=== PATIENT | female | born 1985 | race Caucasian/White ===

== ENCOUNTER 2017-02-01 14:14 | Emergency (ER) | payer BC, OTHER ==
[~2017-02-01] VITALS: Ht 172.7 cm; Wt 93.0 kg
[~2017-02-01 14:14] MED LIST: CIPR500T94 PO; HYDR-971 PO; METR500T PO; ONDA4TAB10 PO
[2017-02-01] MEDS ORDERED: KETOROLAC 30 MG/ML VIAL. ONE (14:48)
[2017-02-01] MEDS ORDERED: ONDANSETRON PF 4 MG/2 ML VIAL. ONE (14:48)
[2017-02-01] MEDS: fentaNYL PF 100 MCG/2 ML VIAL IV PRN ×2 (14:53→15:16)
[2017-02-01 14:59] LABS: BASO % 0 % (0-3); EOS # 0.2 x10^3/uL (0.0-0.7); EOS % 2 % (0-3); HEMATOCRIT 41.3 % (36.0-47.0); HEMOGLOBIN 13.8 g/dL (12.0-15.5); LYMPH # 1.9 x10^3/uL (1.0-4.8); LYMPH % 22 % (24-48); MEAN CORPUSCULAR HEMOGLOBIN 32 pg (25-35); MEAN CORPUSCULAR HGB CONC 33 g/dL (31-37); MEAN CORPUSCULAR VOLUME 95 fL (79-100); MONO # 0.6 x10^3/uL (0.0-1.1); MONO % 7 % (0-9); NEUT # 5.7 x10^3uL (1.8-7.7); NEUT % 68 % (31-73); PLATELET COUNT 263 x10^3/uL (140-400); RED BLOOD COUNT 4.34 x10^6/uL (3.50-5.40); RED CELL DISTRIBUTION WIDTH 13.7 % (11.5-14.5); WHITE BLOOD COUNT 8.3 x10^3/uL (4.0-11.0)
[2017-02-01] MEDS ORDERED: ONDANSETRON PF 4 MG/2 ML VIAL. IV ONE (15:10)
[2017-02-01] MEDS ORDERED: KETOROLAC 30 MG/ML VIAL. IV ONE (15:10)
[2017-02-01 15:13] LABS: ALBUMIN 3.8 g/dL (3.4-5.0); CALCIUM 8.9 mg/dL (8.5-10.1); CREATININE 0.9 mg/dL (0.6-1.0); DIRECT BILIRUBIN 0.1 mg/dL (0.0-0.2); GFR 72.6; POTASSIUM 4.1 mmol/L (3.5-5.1); TOTAL BILIRUBIN 0.3 mg/dL (0.2-1.0); TOTAL PROTEIN 7.6 g/dL (6.4-8.2)
[2017-02-01] MEDS ORDERED: IV NORMAL SALINE 50ML 50 ML ONE (15:18)
[2017-02-01] MEDS ORDERED: cefTRIAXone SODIUM 1 GM VIAL IV ONE (15:18)
[2017-02-01] MEDS ORDERED: IV NORMAL SALINE 500ML 500 ML ONE (15:20)
--- NOTE | 2017-02-01 15:31 | RAD ---
CT abdomen and pelvis without contrast 02/01/2017 Clinical indication: Left flank pain. Comparison: CT September 12, 2016 Technique: CT helical acquisition of the abdomen and pelvis was obtained without contrast. Coronal and sagittal reformations were obtained. PQRS Compliance Statement: One or more of the following individualized dose reduction techniques were utilized for this examination: 1. Automated exposure control 2. Adjustment of the mA and/or kV according to patient size 3. Use of iterative reconstruction technique Findings: Abdomen and pelvis: Heart size within normal limits and visualized lung bases are clear. Evaluation of the solid abdominopelvic viscera, lymphadenopathy and vasculature are limited in the absence of intravenous contrast. Unenhanced contours of the liver, spleen, adrenal glands, gallbladder, pancreas and kidneys are within normal limits. No urolithiasis or hydroureteronephrosis. Small and large bowel loops are normal in caliber without obstruction. Pedicles normal in appearance. No abdominal free fluid. Abdominal aorta is normal in caliber. Mildly distended and unopacified urinary bladder is within normal limits. Prior bilateral tubal ligation. Vaginal tampon noted. No definite iliac or inguinal lymphadenopathy. No pelvic free fluid. No destructive osseous lesions. Impression: No noncontrast CT etiology to account for left flank pain, specifically no urolithiasis or hydroureteronephrosis.
--- NOTE | 2017-02-01 15:35 | PHYS DOC ---
General Chief Complaint: BACK PAIN OR INJURY Stated Complaint: LEFT SIDE FLANK PAIN IN THE BACK x3 days Time Seen by MD: 14:16 Source: patient, old records ([facility] emergency department records requested and reviewed by me) Exam Limitations: no limitations Problems: History of Present Illness Initial Comments Patient is a 32-year-old female who comes to the emergency department complaining of left flank pain. Patient states she's been hurting for the past 3 days, she was seen at [facility] emergency department 2 days ago and fully evaluated with lab urine studies and CT. No cause for her symptoms was noted, she was discharged home diagnosed with sprain and with "a muscle relaxer" and hydrocodone prescriptions. Patient states that her pain has persisted, she is out of hydrocodone and crying complaining of severe pain and has come for further evaluation. She denies nausea vomiting diarrhea of bowel or bladder symptoms fever chills sweats or myalgias. She denies any trauma or strenuous activity. She has no leg weakness no saddle anesthesia and no incontinence of stool or urine. Patient has no primary care doctor Timing/Duration: constant (3 days) Severity: severe Modifying Factors: worse with movement, improves with rest Associated Symptoms: other Allergies: Coded Allergies: No Known Drug Allergies (Unverified , 06/26/13) Past Medical History Medical History: other (anxiety, frequent urinary tract infections, kidney stones) Surgical History: other (hysteroscopy with insertion of IUD, ureteral stent, D& C, lithotripsy) Social History Smoker: less than 1 pack/day Alcohol: occasionally Drugs: none Review of Systems Constitutional: denies chills, denies diaphoresis, denies fever, denies malaise Respiratory: denies cough, denies shortness of breath Cardiovascular: denies chest pain, denies palpitations Gastrointestinal: denies abdominal pain, denies diarrhea, denies nausea, denies vomiting Genitourinary: denies discharge, denies dysuria, denies frequency, denies hematuria, denies pain Musculoskeletal: see HPI Psychiatric/Neurological: denies headache, denies numbness, denies paresthesia , denies pre-existing deficit, denies seizure, denies weakness Hematologic/Lymphatic: denies blood clots, denies easy bleeding, denies easy bruising Physical Exam General Appearance: moderate distress, obese Eyes: bilateral eye normal inspection, bilateral eye PERRL, bilateral eye EOMI Ear, Nose, Throat: hearing grossly normal, normal ENT inspection Neck: non-tender, supple Respiratory: normal breath sounds, no respiratory distress Cardiovascular: normal peripheral pulses, regular rate, rhythm Gastrointestinal: normal bowel sounds, non tender, soft, no organomegaly Rectal: deferred Back: other (exquisite left SI joint tenderness to palpation with swelling or ecchymosis warmth erythema or palpable bony/soft tissue deformity) Extremities: non-tender, normal inspection Neurologic/Psychiatric: quality assurance 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 PHYSICIAN: TODD ROWLEY DO REASON: L flank pain r/o stone PROCEDURE: CT ABDOMEN PELVIS WO CONTRAST CT abdomen and pelvis without contrast 02/01/2017 Clinical indication: Left flank pain. Comparison: CT September 12, 2016 Technique: CT helical acquisition of the abdomen and pelvis was obtained without contrast. Coronal and sagittal reformations were obtained. PQRS Compliance Statement: One or more of the following individualized dose reduction techniques were utilized for this examination: 1. Automated exposure control 2. Adjustment of the mA and/or kV according to patient size 3. Use of iterative reconstruction technique Findings: Abdomen and pelvis: Heart size within normal limits and visualized lung bases are clear. Evaluation of the solid abdominopelvic viscera, lymphadenopathy and vasculature are limited in the absence of intravenous contrast. Unenhanced contours of the liver, spleen, adrenal glands, gallbladder, pancreas and kidneys are within normal limits. No urolithiasis or hydroureteronephrosis. Small and large bowel loops are normal in caliber without obstruction. Pedicles normal in appearance. No abdominal free fluid. Abdominal aorta is normal in caliber. Mildly distended and unopacified urinary bladder is within normal limits. Prior bilateral tubal ligation. Vaginal tampon noted. No definite iliac or inguinal lymphadenopathy. No pelvic free fluid. No destructive osseous lesions. Impression: No noncontrast CT etiology to account for left flank pain, specifically no urolithiasis or hydroureteronephrosis. DICTATED AND SIGNED BY: TIMMY BURNETTE MD DATE: 02/01/17 6812 CC: PCP,NO; TODD ROWLEY DO ~ Lab and urine studies unremarkable. 1659: Patient is much more comfortable after fentanyl and Toradol. As we have ruled out intra-abdominal cause and physical exam indicative of sacroilitis the patient will be discharged home. I discussed Percocet and prednisone burst as well as the need for close follow-up on Saturday. If symptoms are not improving she may need MRI or orthosis/pain management evaluation. We discussed the treatment plan at length patient expressed agreement and understanding of same. Departure Time of Disposition: 16: Disposition: HOME, SELF-CARE Diagnosis: left sacroiliitis Condition: GOOD Patient Instructions: Sacroiliac Joint Dysfunction Additional Instructions: Work excuse until doctor recheck. Rest, keep activity to "pain free." Aggressive hydration with Gatorade and water to prevent dehydration and opioid- induced constipation. Prescription: Percocet 7.5 mg quantity 20 take with food. Prednisone 20 mg quantity 10 Continue previously prescribed muscle relaxants. Take [id number] stool softeners to prevent constipation. You will need to follow up with a doctor on Saturday for recheck and further evaluation including possible MRI and/or pain management. ED staff will give you a list of local doctors accepting new patients as well as those who have walk-in hours available. Return to ED with new or changing symptoms. TODD ROWLEY DO Feb 01, 2017 15:35
[2017-02-01 16:02] LABS: BARBITURATES NEG (NEG); BENZODIAZEPINES NEG (NEG); CANNABINOIDS NEG (NEG); COCAINE NEG (NEG); METHADONE NEG (NEG); OPIATES POS (NEG); PHENCYCLIDINE NEG (NEG)
[2017-02-01 16:03] LABS: AMPHETAMINE/METHAMPHETAMINE NEG (NEG)
[2017-02-01 16:05] LABS: BACTERIA,URINE 0 /HPF (0-FEW); BILIRUBIN,URINE NEG (NEG); CLARITY,URINE CLEAR; COLOR,URINE STRAW; GLUCOSE,URINE NEG (NEG); NITRITE,URINE NEG (NEG); RBC,URINE 0 /HPF (0-2); SQUAMOUS EPITHELIAL CELL,UR OCC /LPF; UROBILINOGEN,URINE 0.2 mg/dL (0.2 mg/dL); WBC,URINE OCC /HPF (0-4)
[2017-02-01] MEDS ORDERED: ONDANSETRON ODT 4 MG TAB.RAPDIS PO ONE (16:45)
[2017-02-01] MEDS ORDERED: oxyCODONE/APAP 7.5/325 1 TAB TABLET PO ONE (16:45)
[2017-02-01] MEDS ORDERED: methylPREDNISolone SOD SUCC PF 125 MG/2 ML VIAL. IV ONE (16:45)
[2017-02-01 17:44] VITALS: BP 121/65
== END 2017-02-01 17:35 | disposition home or self-care (01) ==
LOC: ER 14:15
DX: M46.1 Sacroiliitis, not elsewhere classified (principal); F41.9 Anxiety disorder, unspecified; F17.210 Nicotine dependence, cigarettes, uncomplicated; Z87.440 Personal history of urinary (tract) infections; Z87.442 Personal history of urinary calculi
CPT/HCPCS: 36415; 74176; 80048; 80076; 80307; 81001; 81025; 83690; 85027; 96365; 96375; 96376; 99285; G0480; J0696; J1885; J2405; J2930; J3010; Q0162; G0479

== ENCOUNTER 2017-02-12 18:20 | Emergency (ER) | payer OTHER ==
[2017-02-12] MEDS ORDERED: IV NORMAL SALINE 1,000ML 1,000 ML IV ONE (19:00)
[2017-02-12] MEDS ORDERED: ONDANSETRON PF 4 MG/2 ML VIAL. IV ONE ×2 (19:15→22:30)
--- NOTE | 2017-02-12 19:15 | ED.ADGEN ---
Past History Past Medical History: No Pertinent History Past Surgical History: Other Smoking: Cigarettes Alcohol Use: Occasionally Drug Use: None Adult General Chief Complaint Chief Complaint multiple complaints HPI HPI Patient is a 32 y/o female who was seen her bout 1-2 months ago for sacroiliac disease. she was instructed to get a pcp which she did. she saw her pcp that prescribed her norflex, hydrocodone, oxycodone, tramadol and medrol dose lien. for 3 weeks she has felt cloudy, shaky, blurred vision. she then stopped the steroids because she thought they were making her shaky. then she stopped pain meds because she thought they were making her sick. after stopping the pain meds, she has been vomiting and diarrhea for past 1 week. she started taking percocet and norflex at night because people told her she should not have suddenly stopped pain meds. restarting percocet helped with jitters. now she only takes norflex and percocet at night. she is still having vomiting and diarrhea for past 4 days. she is feeling lightheaded still. Review of Systems Review of Systems Constitutional: Denies fever or chills [] Eyes: Denies change in visual acuity, redness, or eye pain +blurry vision intermittingly HENT: Denies nasal congestion . +sore throat with vomiting and acidic taste in mouth Respiratory: Denies cough or shortness of breath [] Cardiovascular: No additional information not addressed in HPI [] GI: Denies abdominal pain, +n/v/d [] : Denies dysuria or hematuria [] Musculoskeletal: Denies back pain. +sacroiliac pain Integument: Denies rash or skin lesions [] Neurologic: headache at times, jitteriness Endocrine: Denies polyuria or polydipsia [] Current Medications Current Medications Current Medications Medications (Trade) Dose Ordered Sig/Chato Start Time Stop Time Status Last Admin Dose Admin Diphenhydramine HCl (Benadryl) 25 mg 1X ONCE 02/12/17 22:45 02/12/17 22:45 DC 02/12/17 22:37 25 MG Fentanyl Citrate (Fentanyl 2ml Vial) 50 mcg 1X ONCE 02/12/17 21:15 02/12/17 21:16 DC 02/12/17 21:00 50 MCG Ketorolac Tromethamine (Toradol) 30 mg 1X ONCE 02/12/17 21:15 02/12/17 21:16 DC 02/12/17 21:00 30 MG Ondansetron HCl (Zofran) 4 mg 1X ONCE 02/12/17 22:30 02/12/17 22:31 DC 02/12/17 22:23 4 MG Sodium Chloride 1,000 ml @ 1,000 mls/hr 1X ONCE 02/12/17 19:00 02/12/17 19:59 DC 02/12/17 19:20 1,000 MLS/HR Allergies Allergies Allergies Coded Allergies Type Severity Reaction Last Updated Verified No Known Drug Allergies 06/26/13 No Physical Exam Physical Exam Constitutional: Well developed, well nourished, no acute distress, non-toxic appearance. [] HENT: Normocephalic, atraumatic, bilateral external ears normal, oropharynx moist, no oral exudates, nose normal. [] Eyes: PERRLA, EOMI, conjunctiva normal, no discharge. [] Neck: Normal range of motion, no tenderness, supple, no stridor. [] Cardiovascular:Heart rate regular rhythm, no murmur [] Lungs & Thorax: Bilateral breath sounds clear to auscultation [] Abdomen: Bowel sounds normal, soft, no tenderness, no masses, no pulsatile masses. [] Skin: Warm, dry, no erythema, no rash. [] Back:no cva tenderness, pain over lumbar spine radiating to sacroiliac area Extremities: No tenderness, no cyanosis, no clubbing, ROM intact, no edema. [] Neurologic: Alert and oriented X 3, normal motor function, normal sensory function, no focal deficits noted. +pressured speech Psychologic: Affect normal, judgement normal, mood normal. [] Current Patient Data Vital Signs Vital Signs Date Time Temp Pulse Resp B/P (MAP) Pulse Ox O2 Delivery O2 Flow Rate FiO2 02/12/17 21:00 20 98 Room Air 02/12/17 18:20 98.1 72 Lab Results Laboratory Tests Test 02/12/17 19:15 White Blood Count 13.1 x10^3/uL (4.0-11.0) H Red Blood Count 4.57 x10^6/uL (3.50-5.40) Hemoglobin 14.5 g/dL (12.0-15.5) Hematocrit 43.7 % (36.0-47.0) Mean Corpuscular Volume 96 fL (79-100) Mean Corpuscular Hemoglobin 32 pg (25-35) Mean Corpuscular Hemoglobin Concent 33 g/dL (31-37) Red Cell Distribution Width 13.6 % (11.5-14.5) Platelet Count 268 x10^3/uL (140-400) Neutrophils (%) (Auto) 69 % (31-73) Lymphocytes (%) (Auto) 24 % (24-48) Monocytes (%) (Auto) 6 % (0-9) Eosinophils (%) (Auto) 1 % (0-3) Basophils (%) (Auto) 0 % (0-3) Neutrophils # (Auto) 9.1 x10^3uL (1.8-7.7) H Lymphocytes # (Auto) 3.1 x10^3/uL (1.0-4.8) Monocytes # (Auto) 0.7 x10^3/uL (0.0-1.1) Eosinophils # (Auto) 0.1 x10^3/uL (0.0-0.7) Basophils # (Auto) 0.0 x10^3/uL (0.0-0.2) Sodium Level 138 mmol/L (136-145) Potassium Level 3.5 mmol/L (3.5-5.1) Chloride Level 102 mmol/L (98-107) Carbon Dioxide Level 28 mmol/L (21-32) Anion Gap 8 (6-14) Blood Urea Nitrogen 13 mg/dL (7-20) Creatinine 0.9 mg/dL (0.6-1.0) Estimated GFR (Cockcroft-Gault) 72.6 BUN/Creatinine Ratio 14 (6-20) Glucose Level 117 mg/dL (70-99) H Calcium Level 8.7 mg/dL (8.5-10.1) Magnesium Level 2.1 mg/dL (1.8-2.4) Total Bilirubin 0.2 mg/dL (0.2-1.0) Aspartate Amino Transferase (AST) 26 U/L (15-37) Alanine Aminotransferase (ALT) 54 U/L (14-59) Alkaline Phosphatase 74 U/L (46-116) Total Protein 7.8 g/dL (6.4-8.2) Albumin 3.8 g/dL (3.4-5.0) Albumin/Globulin Ratio 1.0 (1.0-1.7) EKG EKG [] Radiology/Procedures Radiology/Procedures [] Course & Med Decision Making Course & Med Decision Making Pertinent Labs and Imaging studies reviewed. (See chart for details) pt could be suffering from withdrawal since she had been on narcotics for 2-3 weeks. she could be jittery from the steroids although she has been off these for >1 week. labs are unremarkable. ivf given. will have her try baclofen and naprosyn for pain. she will stop percocet and norflex. she will f/u pcp and return here if sx not improving in 3-4 days. [] Final Impression Final Impression [] Problems: Dragon Disclaimer Dragon Disclaimer This electronic medical record was generated, in whole or in part, using a voice recognition dictation system. Departure Disposition: 01 HOME, SELF-CARE Condition: IMPROVED Patient Instructions: Narcotic Withdrawal-Brief Additional Instructions: start baclofen 5mg up to three times a day. naprosyn morning and night. you can continue norflex at night. return if symptoms worsen. baclofen will make you tired so take it after work for the first time Prescriptions baclofen and naprosyn DAKOTA VENTURA MD Feb 12, 2017 19:15
[2017-02-12 19:32] LABS: BASO % 0 % (0-3); EOS # 0.1 x10^3/uL (0.0-0.7); EOS % 1 % (0-3); HEMATOCRIT 43.7 % (36.0-47.0); HEMOGLOBIN 14.5 g/dL (12.0-15.5); LYMPH # 3.1 x10^3/uL (1.0-4.8); LYMPH % 24 % (24-48); MEAN CORPUSCULAR HEMOGLOBIN 32 pg (25-35); MEAN CORPUSCULAR HGB CONC 33 g/dL (31-37); MEAN CORPUSCULAR VOLUME 96 fL (79-100); MONO # 0.7 x10^3/uL (0.0-1.1); MONO % 6 % (0-9); NEUT # 9.1 x10^3uL (1.8-7.7); NEUT % 69 % (31-73); PLATELET COUNT 268 x10^3/uL (140-400); RED BLOOD COUNT 4.57 x10^6/uL (3.50-5.40); RED CELL DISTRIBUTION WIDTH 13.6 % (11.5-14.5); WHITE BLOOD COUNT 13.1 x10^3/uL (4.0-11.0)
[2017-02-12 19:43] LABS: ALBUMIN 3.8 g/dL (3.4-5.0); CALCIUM 8.7 mg/dL (8.5-10.1); CREATININE 0.9 mg/dL (0.6-1.0); GFR 72.6; MAGNESIUM 2.1 mg/dL (1.8-2.4); TOTAL BILIRUBIN 0.2 mg/dL (0.2-1.0); TOTAL PROTEIN 7.8 g/dL (6.4-8.2)
[2017-02-12 19:44] LABS: POTASSIUM 3.5 mmol/L (3.5-5.1)
[2017-02-12] MEDS ORDERED: KETOROLAC 30 MG/ML VIAL. IV ONE (21:15)
[2017-02-12] MEDS ORDERED: fentaNYL PF 100 MCG/2 ML VIAL IV ONE (21:15)
[2017-02-12] MEDS ORDERED: BACL10TA PO (22:13)
[2017-02-12 22:15] VITALS: BP 129/75
[2017-02-12] MEDS ORDERED: NAPR500T PO (22:15)
[2017-02-12] MEDS ORDERED: diphenhydrAMINE 50 MG/ML VIAL IVP ONE (22:45)
== END 2017-02-12 22:38 | disposition home or self-care (01) ==
LOC: ER 18:20
DX: H53.8 Other visual disturbances (principal); R11.2 Nausea with vomiting, unspecified; R19.7 Diarrhea, unspecified; M53.3 Sacrococcygeal disorders, not elsewhere classified; F17.210 Nicotine dependence, cigarettes, uncomplicated
CPT/HCPCS: 36415; 80053; 83735; 85027; 96361; 96374; 96375; 96376; 99285; J1200; J1885; J2405; J3010; J7030

== ENCOUNTER 2017-03-27 19:47 | Emergency (ER) | payer OTHER ==
[~2017-03-27] VITALS: Ht 172.7 cm; Wt 96.2 kg
[~2017-03-27 19:47] MED LIST changes: +BACL10TA PO; +NAPR500T PO
[2017-03-27 19:55] VITALS: BP 151/79
[2017-03-27] MEDS ORDERED: IV NORMAL SALINE 1,000ML 1,000 ML IV SCH (20:06)
--- NOTE | 2017-03-27 20:33 | ED.ADGEN ---
Past History Past Medical History: Migraines Past Surgical History: Other Smoking: Cigarettes Alcohol Use: Occasionally Drug Use: None Adult General HPI HPI Patient is a 32-year-old woman, history of migraine headache, who presents to the emergency department with complaint of numbness and tingling with "heaviness " in her left upper extremity, and a small amount of numbness and tingling in her right upper extremity. Patient states that this began around 3:00 in the morning, while she was engaged in sexual activity, patient states that she was on her elbows and her knees, having her course from behind, when she had sudden numbness that occurred in her left upper extremity, and she fell forward. She denies any previous injuries, any pressure on her neck or head, any nausea or vomiting, states that she had had a significantly severe headache earlier in the day but had resolved mostly at that point. She denies any vision changes, any previous history of focal weakness or numbness, states that she was drinking alcohol last night but denies any other ingestions or exposures. No chest pain, no shortness of breath. Review of Systems Review of Systems Constitutional: Denies fever or chills [] Eyes: Denies change in visual acuity, redness, or eye pain [] HENT: Denies nasal congestion or sore throat [] Respiratory: Denies cough or shortness of breath [] Cardiovascular: No additional information not addressed in HPI [] GI: Denies abdominal pain, nausea, vomiting, bloody stools or diarrhea [] : Denies dysuria or hematuria [] Musculoskeletal: Denies back pain or joint pain [] Integument: Denies rash or skin lesions [] Neurologic: Headache yesterday, located in the posterior aspect of her head, so the right side, with "heaviness" and numbness and tingling located in the left and right upper extremities. Left sided greater than right. Endocrine: Denies polyuria or polydipsia [] Current Medications Current Medications Current Medications Medications (Trade) Dose Ordered Sig/Chato Start Time Stop Time Status Last Admin Dose Admin Sodium Chloride 1,000 ml @ 1,000 mls/hr Q1H 03/27/17 20:06 03/27/17 21:05 DC Allergies Allergies Allergies Coded Allergies Type Severity Reaction Last Updated Verified No Known Drug Allergies 06/26/13 No Physical Exam Physical Exam Constitutional: Well developed, well nourished, no acute distress, non-toxic appearance. [] HENT: Normocephalic, atraumatic, bilateral external ears normal, oropharynx moist, no oral exudates, nose normal. [] Eyes: PERRLA, EOMI, conjunctiva normal, no discharge. [] Neck: Normal range of motion, no tenderness, supple, no stridor. []Negative Spurling sign. Cardiovascular:Heart rate regular rhythm, no murmur, S1, S2, rubs or gallops. [] Lungs & Thorax: Bilateral breath sounds clear to auscultation, no wheezing, rhonchi, rales. No chest or crepitus or tenderness. [] Abdomen: Bowel sounds normal, soft, no tenderness, no masses, no pulsatile masses. [] Skin: Warm, dry, no erythema, no rash. [] Back: No tenderness, no CVA tenderness. [] Extremities: No tenderness, no cyanosis, no clubbing, ROM intact, no edema. Negative Homans sign.[] Neurologic: Alert and oriented X 3, normal motor function, complaints of "tingling", and diminished sensation in case in the entire left upper extremity , with normal sensation in the right upper extremity, normal sensation bilateral low 20s, 5-5 strength in all extremities,, no focal deficits noted. [] Psychologic: Affect normal, judgement normal, mood normal. [] Current Patient Data Vital Signs Vital Signs Date Time Temp Pulse Resp B/P (MAP) Pulse Ox O2 Delivery O2 Flow Rate FiO2 03/27/17 19:55 98.3 86 16 98 Room Air Lab Results Laboratory Tests Test 03/27/17 20:45 03/27/17 20:55 03/27/17 21:09 White Blood Count 11.0 x10^3/uL (4.0-11.0) Red Blood Count 4.41 x10^6/uL (3.50-5.40) Hemoglobin 14.2 g/dL (12.0-15.5) Hematocrit 41.6 % (36.0-47.0) Mean Corpuscular Volume 94 fL (79-100) Mean Corpuscular Hemoglobin 32 pg (25-35) Mean Corpuscular Hemoglobin Concent 34 g/dL (31-37) Red Cell Distribution Width 13.8 % (11.5-14.5) Platelet Count 234 x10^3/uL (140-400) Neutrophils (%) (Auto) 65 % (31-73) Lymphocytes (%) (Auto) 26 % (24-48) Monocytes (%) (Auto) 6 % (0-9) Eosinophils (%) (Auto) 2 % (0-3) Basophils (%) (Auto) 1 % (0-3) Neutrophils # (Auto) 7.1 x10^3uL (1.8-7.7) Lymphocytes # (Auto) 2.9 x10^3/uL (1.0-4.8) Monocytes # (Auto) 0.7 x10^3/uL (0.0-1.1) Eosinophils # (Auto) 0.2 x10^3/uL (0.0-0.7) Basophils # (Auto) 0.1 x10^3/uL (0.0-0.2) Prothrombin Time 11.6 SEC (9.4-11.4) H Prothrombin Time INR 1.1 (0.9-1.1) PTT 26 SEC (23-33) Sodium Level 141 mmol/L (136-145) Potassium Level 4.3 mmol/L (3.5-5.1) Chloride Level 108 mmol/L (98-107) H Carbon Dioxide Level 24 mmol/L (21-32) Anion Gap 9 (6-14) Blood Urea Nitrogen 8 mg/dL (7-20) Creatinine 0.8 mg/dL (0.6-1.0) Estimated GFR (Cockcroft-Gault) 83.1 BUN/Creatinine Ratio 10 (6-20) Glucose Level 72 mg/dL (70-99) Calcium Level 8.6 mg/dL (8.5-10.1) Total Bilirubin 0.7 mg/dL (0.2-1.0) Aspartate Amino Transferase (AST) 27 U/L (15-37) Alanine Aminotransferase (ALT) 20 U/L (14-59) Alkaline Phosphatase 65 U/L (46-116) Total Protein 7.4 g/dL (6.4-8.2) Albumin 3.9 g/dL (3.4-5.0) Albumin/Globulin Ratio 1.1 (1.0-1.7) Urine Opiates Screen Pos (NEG) Urine Methadone Screen Neg (NEG) Urine Barbiturates Neg (NEG) Urine Phencyclidine Screen Neg (NEG) Urine Amphetamine/Methamphetamine Neg (NEG) Urine Benzodiazepines Screen Neg (NEG) Urine Cocaine Screen Neg (NEG) Urine Cannabinoids Screen Neg (NEG) Urine Ethyl Alcohol Pos (NEG) POC Urine HCG, Qualitative hcg negative (Negative) EKG EKG EC: Sinus rhythm, heart rate 67 bpm, upright axis, QTC of 406, QRS of 78 , no ST elevations or depressions, no evidence of acute ST abnormalities. As interpreted by me.[] Radiology/Procedures Radiology/Procedures [][address] [address] IMAGING REPORT Signed PATIENT: CAYDEN WATT ACCOUNT: [id number] : 1985 LOCATION: ER AGE: 32 SEX: F EXAM STATUS: REG ER ORD. PHYSICIAN: MINE SALDANA DO REASON: LUE/RUE weakness PROCEDURE: CT HEAD WO CONTRAST CT head without contrast HISTORY: Weakness and tingling of the upper extremities. TECHNIQUE: [address] imaging skull base to vertex. FINDINGS: No intracranial hemorrhage, mass, hydrocephalus, extra-axial fluid collections or infarction. No acute ischemic changes evident. Imaged orbits, mastoids, paranasal sinuses and bones are unremarkable. IMPRESSION: No acute intracranial CT abnormality. Exposure: One or more of the following individualized dose reduction techniques were utilized for this examination: 1. Automated exposure control 2. Adjustment of the mA and/or kV according to patient size 3. Use of iterative reconstruction technique Electronically signed by: Beryl Mckee MD (03/27/2017 9:34 PM) [facility] DICTATED AND SIGNED BY: BERYL MCKEE MD DATE: 03/27/172129 CC: PAVEL ROBLES DO; MINE SALDANA DO ~ Chest x-ray: One view: Normal cardiopulmonary silhouette, no infiltrates, no pneumothorax, no effusions, no soft tissue or bone abdomen is identified. As interpreted by me. Course & Med Decision Making Course & Med Decision Making Pertinent Labs and Imaging studies reviewed. (See chart for details) Patient with 5-5 strength in all extremities, complaining of tingling and numbness in the left upper extremity circumferentially, and and states that she did have some in the right upper extremity previously, although none at this time. Patient's examination is objectively unremarkable. I did discuss these findings, including patient's presenting history and preceding events, with Dr. Beauchamp of neurology, patient symptoms are consistent with paresthesias, she has no neck tenderness, negative Spurling sign. States this could be a peripheral nerve injury that occurred during her activities, recommends the patient obtain a noncontrast CT of the head, and if this is unremarkable and no other concerning findings identified, that the patient either be transferred to [facility] for MRI and additional evaluation with neurology, or if you prefer, to follow-up with him in the outpatient setting. I did discuss with patient, she was agreeable to receiving laboratory studies and CT without contrast. This was obtained and revealed no concerning findings. Patient's laboratory studies were also unremarkable. On reevaluation, patient is eating, using both hands without issue. She states that she is feeling better at this time although she does still have some residual numbness and tingling in the left upper extremity. I did revisit with patient admission to the hospital for MRI and additional evaluation, patient declined stating she preferred to follow- up as an outpatient. Patient's neurologic examination is unchanged. We did discuss risks versus benefit of this course, and concerning symptoms that prompt the return, patient voiced understanding and agreement. Patient was given contact information for Dr. Gonzales, along with clear and detailed instructions and precautions. Patient discharged home in stable condition ambulatory in the difficulty upon exiting the ED. Final Impression Final Impression [] Problems: Dragon Disclaimer Dragon Disclaimer This electronic medical record was generated, in whole or in part, using a voice recognition dictation system. Departure: Impression: Primary Impression: Paresthesias Disposition: 01 HOME, SELF-CARE Condition: IMPROVED MINE SALDANA DO Mar 27, 2017 20:33
--- NOTE | 2017-03-27 20:39 | EKG ---
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
[2017-03-27 21:12] LABS: BASO # 0.1 x10^3/uL (0.0-0.2); BASO % 1 % (0-3); EOS # 0.2 x10^3/uL (0.0-0.7); EOS % 2 % (0-3); HEMATOCRIT 41.6 % (36.0-47.0); HEMOGLOBIN 14.2 g/dL (12.0-15.5); LYMPH # 2.9 x10^3/uL (1.0-4.8); LYMPH % 26 % (24-48); MEAN CORPUSCULAR HEMOGLOBIN 32 pg (25-35); MEAN CORPUSCULAR HGB CONC 34 g/dL (31-37); MEAN CORPUSCULAR VOLUME 94 fL (79-100); MONO # 0.7 x10^3/uL (0.0-1.1); MONO % 6 % (0-9); NEUT # 7.1 x10^3uL (1.8-7.7); NEUT % 65 % (31-73); PLATELET COUNT 234 x10^3/uL (140-400); RED BLOOD COUNT 4.41 x10^6/uL (3.50-5.40); RED CELL DISTRIBUTION WIDTH 13.8 % (11.5-14.5)
[2017-03-27 21:28] LABS: BARBITURATES NEG (NEG); BENZODIAZEPINES NEG (NEG); CANNABINOIDS NEG (NEG); COCAINE NEG (NEG); METHADONE NEG (NEG); OPIATES POS (NEG); PHENCYCLIDINE NEG (NEG)
[2017-03-27 21:28] LABS: ALBUMIN 3.9 g/dL (3.4-5.0); ALBUMIN/GLOBULIN RATIO 1.1 (1.0-1.7); CALCIUM 8.6 mg/dL (8.5-10.1); CREATININE 0.8 mg/dL (0.6-1.0); GFR 83.1; POTASSIUM 4.3 mmol/L (3.5-5.1); TOTAL BILIRUBIN 0.7 mg/dL (0.2-1.0); TOTAL PROTEIN 7.4 g/dL (6.4-8.2)
[2017-03-27 21:29] LABS: AMPHETAMINE/METHAMPHETAMINE NEG (NEG)
--- NOTE | 2017-03-27 21:37 | RAD ---
CT head without contrast HISTORY: Weakness and tingling of the upper extremities. TECHNIQUE: [address] imaging skull base to vertex. FINDINGS: No intracranial hemorrhage, mass, hydrocephalus, extra-axial fluid collections or infarction. No acute ischemic changes evident. Imaged orbits, mastoids, paranasal sinuses and bones are unremarkable. IMPRESSION: No acute intracranial CT abnormality. Exposure: One or more of the following individualized dose reduction techniques were utilized for this examination: 1. Automated exposure control 2. Adjustment of the mA and/or kV according to patient size 3. Use of iterative reconstruction technique Electronically signed by: Renan Mckee MD (03/27/2017 9:34 PM) [facility]
--- NOTE | 2017-03-28 08:13 | RAD ---
Indication weakness. Tingling down the arms. A single view of the chest was obtained. No prior imaging of the chest is available. The heart, pulmonary vessels and mediastinum appear normal. The lungs are clear. There is no pleural fluid or pneumothorax. Bony structures appear grossly intact. Nipple ornaments are noted. IMPRESSION: No acute or significant finding in the chest
== END 2017-03-27 20:18 | disposition home or self-care (01) ==
LOC: ER 19:47
DX: R20.2 Paresthesia of skin (principal); G43.909 Migraine, unspecified, not intractable, without status migrainosus; F17.210 Nicotine dependence, cigarettes, uncomplicated
CPT/HCPCS: 36415; 70450; 71010; 80053; 80307; 81025; 85025; 85610; 85730; 93005; 99285-25; G0479

== ENCOUNTER 2017-08-23 23:02 | Emergency (ER) | payer OTHER ==
[~2017-08-23] VITALS: Ht 172.7 cm; Wt 96.6 kg
[~2017-08-23 23:02] MED LIST changes: +NAPR-683 PO; -NAPR500T PO
--- NOTE | 2017-08-23 23:12 | ED.ADGEN ---
Past History Past Medical History: Migraines Past Surgical History: Other Smoking: Cigarettes Alcohol Use: Occasionally Drug Use: None Adult General Chief Complaint Chief Complaint ".. Yesterday.. I fell about 1 am... and landed on this Lt elbow.. it still really hurting..." HPI HPI Patient is a 32 year old female who presents with above hx and complaints of contusion to Lt. forearm during an accidental fall. Patient has obvious ecchymosis and contusion to mid forearm. Distal neurovascular intact. No upper arm tenderness. Patient is right-hand dominant. No other injuries reported in the fall. Review of Systems Review of Systems Constitutional: Denies fever or chills [] Eyes: Denies change in visual acuity, redness, or eye pain [] HENT: Denies nasal congestion or sore throat [] Respiratory: Denies cough or shortness of breath [] Cardiovascular: No additional information not addressed in HPI [] GI: Denies abdominal pain, nausea, vomiting, bloody stools or diarrhea [] : Denies dysuria or hematuria [] Musculoskeletal: Denies back pain or joint pain []complains of left forearm pain Integument: Denies rash or skin lesions [] Neurologic: Denies headache, focal weakness or sensory changes [] Endocrine: Denies polyuria or polydipsia [] All other systems were reviewed and found to be within normal limits, except as documented in this note. Family History Family History Noncontributory to presentation Current Medications Current Medications Current Medications Medications (Trade) Dose Ordered Sig/[facility] Start Time Stop Time Status Last Admin Dose Admin Ketorolac Tromethamine (Toradol) 60 mg 1X ONCE 08/23/17 23:45 08/23/17 23:46 DC 08/23/17 23:52 60 MG See nursing for home meds Allergies Allergies Allergies Coded Allergies Type Severity Reaction Last Updated Verified No Known Drug Allergies 08/24/17 No Physical Exam Physical Exam Constitutional: Moderately acute acute distress, non-toxic appearance. [] HENT: Normocephalic, atraumatic, bilateral external ears normal, oropharynx moist, no oral exudates, nose normal. [] Eyes: PERRLA, EOMI, conjunctiva normal, no discharge. [] Neck: Normal range of motion, no tenderness, supple, no stridor. [] Cardiovascular:Heart rate regular rhythm, no murmur [] Lungs & Thorax: Bilateral breath sounds few scattered wheezes at apexes on auscultation [] Abdomen: Bowel sounds normal, soft, no tenderness, no masses, no pulsatile masses. Obese Skin: Warm, dry, no erythema, no rash. [] Back: No tenderness, no CVA tenderness. [] Extremities: No tenderness, no cyanosis, no clubbing, ROM intact, no edema. Except findings of left forearm as per history of present illness Neurologic: Alert and oriented X 3, normal motor function, normal sensory function, no focal deficits noted. [] Psychologic: Affect anxious, judgement normal, mood normal. [] EKG EKG [] Radiology/Procedures Radiology/Procedures My interpretation of right forearm x-ray shows no obvious fracture dislocation. There is some obvious edema and areas of contusion.[] Course & Med Decision Making Course & Med Decision Making Pertinent Labs and Imaging studies reviewed. (See chart for details). Ice, elevation, rest,- a trial of sling and splint. Tylenol and ibuprofen for pain. For marked pain may take Vicoprofen up to 4 times a day. Follow-up primary care. Consider re-x-ray in 2 weeks for possible callus formation. [] Final Impression Final Impression 1. Lt. Elbow Contusion. [] Problems: Dragon Disclaimer Dragon Disclaimer This electronic medical record was generated, in whole or in part, using a voice recognition dictation system. FER HIDALGO MD Aug 23, 2017 23:12
[2017-08-23] MEDS ORDERED: HYDR-79 PO (23:42)
[2017-08-23] MEDS ORDERED: KETOROLAC 60 MG/2 ML VIAL. IM ONE (23:45)
[2017-08-24 00:30] VITALS: BP 120/70
--- NOTE | 2017-08-24 08:10 | RAD ---
EXAM: Left elbow 3 views. HISTORY: Fall with left elbow pain and numbness. COMPARISON: None. FINDINGS: No fractures are identified. Joint spaces and alignment are maintained. There is no joint effusion. IMPRESSION: 1. No fracture or joint effusion.
== END 2017-08-24 01:00 | disposition home or self-care (01) ==
LOC: ER 23:02
DX: S50.12XA Contusion of left forearm, initial encounter (principal); G43.909 Migraine, unspecified, not intractable, without status migrainosus; F17.210 Nicotine dependence, cigarettes, uncomplicated; W19.XXXA Unspecified fall, initial encounter; Y93.89 Activity, other specified; Y99.8 Other external cause status; Y92.89 Other specified places as the place of occurrence of the external cause
CPT/HCPCS: 73080; 96372; 99284; J1885

== ENCOUNTER 2017-10-05 15:02 | Emergency (ER) | payer OTHER ==
[~2017-10-05] VITALS: Ht 172.7 cm; Wt 93.9 kg
[~2017-10-05 15:02] MED LIST changes: +HYDR-79 PO
[2017-10-05] MEDS ORDERED: IV NORMAL SALINE 1,000ML 1,000 ML IV SCH (15:37)
[2017-10-05 15:50] LABS: BASO # 0.1 x10^3/uL (0.0-0.2); BASO % 1 % (0-3); EOS # 0.1 x10^3/uL (0.0-0.7); EOS % 1 % (0-3); HEMATOCRIT 41.8 % (36.0-47.0); LYMPH # 1.5 x10^3/uL (1.0-4.8); LYMPH % 23 % (24-48); MEAN CORPUSCULAR HEMOGLOBIN 32 pg (25-35); MEAN CORPUSCULAR HGB CONC 34 g/dL (31-37); MEAN CORPUSCULAR VOLUME 94 fL (79-100); MONO # 0.6 x10^3/uL (0.0-1.1); MONO % 9 % (0-9); NEUT # 4.4 x10^3uL (1.8-7.7); NEUT % 66 % (31-73); PLATELET COUNT 249 x10^3/uL (140-400); RED BLOOD COUNT 4.45 x10^6/uL (3.50-5.40); RED CELL DISTRIBUTION WIDTH 13.5 % (11.5-14.5); WHITE BLOOD COUNT 6.7 x10^3/uL (4.0-11.0)
[2017-10-05] MEDS ORDERED: ONDANSETRON PF 4 MG/2 ML VIAL. IV ONE (16:00)
[2017-10-05] MEDS ORDERED: PANTOPRAZOLE IV 40 MG VIAL. IVP ONE (16:00)
[2017-10-05 16:03] LABS: ALBUMIN 3.5 g/dL (3.4-5.0); CALCIUM 8.4 mg/dL (8.5-10.1); CREATININE 0.8 mg/dL (0.6-1.0); GFR 83.1; POTASSIUM 3.6 mmol/L (3.5-5.1); TOTAL BILIRUBIN 0.2 mg/dL (0.2-1.0); TOTAL PROTEIN 7.1 g/dL (6.4-8.2)
[2017-10-05] MEDS ORDERED: IV NORMAL SALINE 50ML 50 ML ONE (16:37)
[2017-10-05] MEDS ORDERED: PROMETHAZINE 25 MG/ML VIAL IV ONE (16:37)
[2017-10-05] MEDS ORDERED: PROMETHAZINE 12.5 MG in IV NORMAL SALINE 50ML 50 ML IV ONE (16:45)
[2017-10-05] MEDS ORDERED: MAG HYDROX/AL HYDROX/SIMETH 30 ML ORAL.SUSP PO ONE (16:45)
[2017-10-05] MEDS ORDERED: ONDA4TAB12 PO (17:19)
--- NOTE | 2017-10-05 17:19 | PHYS DOC ---
Past History Past Medical History: Other Past Surgical History: No Surgical History Smoking: Cigarettes Alcohol Use: Occasionally Drug Use: None Adult General Chief Complaint Chief Complaint: ABDOMINAL PAIN HPI HPI Patient is a 32-year-old female who presents ambulatory to the ED with the complaint of nausea and vomiting and abdominal pain that started this morning. The patient says she gets an episode of this every now and then, sometimes related to what she eats, she ate Lawson sausage which might have been spicy. She also notes this happening when she goes without her medication, omeprazole. She ran out of it about a week ago. It feels like "my stomach is boiling" and it feels like a burning pain all the way up through her chest into her throat. She has had a bit of vomiting. She did take an omeprazole yesterday and took one this morning but she vomited it. Liquid antacids help her but she has been out of those. Patient has been seen for this before, was hospitalized and had endoscopy and was told she had ulcers. SHe does not currently have a primary care doctor. Review of Systems Review of Systems Constitutional: Denies fever or chills [] Respiratory: Denies cough or shortness of breath [] Cardiovascular: Denies chest pain GI: As in history of present illness : Denies dysuria or hematuria [] Musculoskeletal: Denies back pain or joint pain [] Integument: Denies rash or skin lesions [] Neurologic: Denies headache, focal weakness or sensory changes [] Current Medications Current Medications Current Medications Medications (Trade) Dose Ordered Sig/[facility] Start Time Stop Time Status Last Admin Dose Admin Al Hydroxide/Mg Hydroxide (Mylanta Plus Xs) 30 ml 1X ONCE 10/05/17 16:45 10/05/17 16:46 DC 10/05/17 16:55 30 ML Fentanyl Citrate (Fentanyl 2ml Vial) 75 mcg 1X ONCE 10/05/17 16:45 10/05/17 16:46 DC 10/05/17 16:55 75 MCG Ondansetron HCl (Zofran) 4 mg 1X ONCE 10/05/17 16:00 10/05/17 16:01 DC 10/05/17 15:47 4 MG Pantoprazole Sodium (Protonix Vial) 40 mg 1X ONCE 10/05/17 16:00 10/05/17 16:01 DC 10/05/17 15:47 40 MG Promethazine HCl (Phenergan) 25 mg STK-MED ONCE 10/05/17 16:37 10/05/17 16:38 DC Promethazine HCl 12.5 mg/Sodium Chloride 50.5 ml @ 101 mls/hr 1X ONCE 10/05/17 16:45 10/05/17 17:14 DC 10/05/17 16:55 101 MLS/HR Sodium Chloride 50 ml @ As Directed STK-MED ONCE 10/05/17 16:37 10/05/17 16:38 DC Allergies Allergies Allergies Coded Allergies Type Severity Reaction Last Updated Verified No Known Drug Allergies 08/24/17 No Physical Exam Physical Exam Constitutional: Well developed, well nourished, she appears uncomfortable, has been vomiting a small amount of yellow stomach acid HENT: Normocephalic, atraumatic, bilateral external ears normal, nose normal. [ ] Eyes:conjunctiva normal, no discharge. [] Neck: Normal range of motion, no stridor. [] Cardiovascular:Heart rate regular rhythm, no murmur [] Lungs & Thorax: Bilateral breath sounds clear to auscultation [] Abdomen: Bowel sounds normal, soft, no masses, no pulsatile masses. Nondistended. Diffuse mild tenderness to palpation, especially across the upper abdomen. No rebound or guarding. Skin: Warm, dry, no erythema, no rash. [] Extremities: No tenderness, no cyanosis, no clubbing, ROM intact, no edema. [] Neurologic: Alert and oriented X 3, normal motor function, no focal deficits noted. [] Current Patient Data Vital Signs Vital Signs Date Time Temp Pulse Resp B/P (MAP) Pulse Ox O2 Delivery O2 Flow Rate FiO2 10/05/17 16:55 18 10/05/17 15:10 98.4 105 98 Room Air Lab Results Laboratory Tests Test 10/05/17 15:35 White Blood Count 6.7 x10^3/uL (4.0-11.0) Red Blood Count 4.45 x10^6/uL (3.50-5.40) Hemoglobin 14.0 g/dL (12.0-15.5) Hematocrit 41.8 % (36.0-47.0) Mean Corpuscular Volume 94 fL (79-100) Mean Corpuscular Hemoglobin 32 pg (25-35) Mean Corpuscular Hemoglobin Concent 34 g/dL (31-37) Red Cell Distribution Width 13.5 % (11.5-14.5) Platelet Count 249 x10^3/uL (140-400) Neutrophils (%) (Auto) 66 % (31-73) Lymphocytes (%) (Auto) 23 % (24-48) L Monocytes (%) (Auto) 9 % (0-9) Eosinophils (%) (Auto) 1 % (0-3) Basophils (%) (Auto) 1 % (0-3) Neutrophils # (Auto) 4.4 x10^3uL (1.8-7.7) Lymphocytes # (Auto) 1.5 x10^3/uL (1.0-4.8) Monocytes # (Auto) 0.6 x10^3/uL (0.0-1.1) Eosinophils # (Auto) 0.1 x10^3/uL (0.0-0.7) Basophils # (Auto) 0.1 x10^3/uL (0.0-0.2) Sodium Level 145 mmol/L (136-145) Potassium Level 3.6 mmol/L (3.5-5.1) Chloride Level 109 mmol/L (98-107) H Carbon Dioxide Level 26 mmol/L (21-32) Anion Gap 10 (6-14) Blood Urea Nitrogen 13 mg/dL (7-20) Creatinine 0.8 mg/dL (0.6-1.0) Estimated GFR (Cockcroft-Gault) 83.1 BUN/Creatinine Ratio 16 (6-20) Glucose Level 80 mg/dL (70-99) Calcium Level 8.4 mg/dL (8.5-10.1) L Total Bilirubin 0.2 mg/dL (0.2-1.0) Aspartate Amino Transferase (AST) 16 U/L (15-37) Alanine Aminotransferase (ALT) 25 U/L (14-59) Alkaline Phosphatase 60 U/L (46-116) Total Protein 7.1 g/dL (6.4-8.2) Albumin 3.5 g/dL (3.4-5.0) Albumin/Globulin Ratio 1.0 (1.0-1.7) Lipase 174 U/L (73-393) EKG EKG [] Radiology/Procedures Radiology/Procedures [] Course & Med Decision Making Course & Med Decision Making Pertinent Labs and Imaging studies reviewed. (See chart for details) 32-year-old female who is having an exacerbation of nausea, vomiting, with excess stomach acid, which she has had in the past. She was given IV fluids, IV antiemetics, pain medication, and a dose of liquid and acid. She felt much better after this treatment. Labs were normal. Patient is stable for discharge and she now has omeprazole at home and also her said he just went and bought some liquid antacid. The patient is stable for discharge. See instructions for plan. [] Dragon Disclaimer Dragon Disclaimer This electronic medical record was generated, in whole or in part, using a voice recognition dictation system. Departure Departure: Impression: Primary Impression: Gastritis Additional Impressions: Acid reflux Nausea and vomiting Disposition: 01 HOME, SELF-CARE Condition: IMPROVED Referrals: PCPAVA (PCP) Patient Instructions: Nausea and Vomiting, [id number] Additional Instructions: You may use a liquid antacid as needed for acid symptoms including stomach burning, vomiting, burning of the throat. Those are very safe and the most common side effect is going to be some loose stools Discuss with your doctor whether a prescription for daily omeprazole would be a better choice for you been buying it [id number]. Scripts Ondansetron (ONDANSETRON ODT) 4 Mg Tab.rapdis 1 TAB PO PRN Q6-8HRS for NAUSEA, #10 TAB Prov: СВЕТЛАНА VASQUEZ MD 10/05/17 Problem Qualifiers СВЕТЛАНА VASQUEZ MD Oct 05, 2017 17:19
[2017-10-05 17:20] VITALS: BP 118/70
== END 2017-10-05 17:34 | disposition home or self-care (01) ==
LOC: ER 15:02
DX: K29.70 Gastritis, unspecified, without bleeding (principal); K21.9 Gastro-esophageal reflux disease without esophagitis; F17.210 Nicotine dependence, cigarettes, uncomplicated
CPT/HCPCS: 36415; 80053; 83690; 85025; 96361; 96365; 96375; 99284; C9113; J2405; J2550; J3010; J7030

== ENCOUNTER 2017-11-08 10:42 | Emergency (ER) | payer OTHER ==
[~2017-11-08 10:42] MED LIST changes: +ONDA4TAB12 PO
[2017-11-08] MEDS ORDERED: KETOROLAC 60 MG/2 ML VIAL. IM ONE (11:15)
[2017-11-08 11:35] LABS: BILIRUBIN,URINE NEG (NEG); CLARITY,URINE HAZY; COLOR,URINE STRAW; GLUCOSE,URINE NEG (NEG); NITRITE,URINE NEG (NEG); RBC,URINE RARE /HPF (0-2); UROBILINOGEN,URINE 0.2 mg/dL (0.2 mg/dL)
[2017-11-08 11:36] LABS: BACTERIA,URINE FEW /HPF (0-FEW); SQUAMOUS EPITHELIAL CELL,UR FEW /LPF; WBC,URINE >40 /HPF (0-4)
[2017-11-08] MEDS ORDERED: cefTRIAXone IM 1 GM VIAL IM ONE (11:45)
[2017-11-08] MEDS ORDERED: HYDROcodone/APAP 5/325MG 1 TAB TABLET PO ONE (11:45)
[2017-11-08] MEDS ORDERED: HYDR-971 PO (12:21)
[2017-11-08] MEDS ORDERED: CIPR250T30 PO (12:21)
[2017-11-08] MEDS ORDERED: PHEN100T82 PO (12:21)
--- NOTE | 2017-11-08 12:21 | PHYS DOC ---
Past History Past Medical History: Other Past Surgical History: No Surgical History Smoking: Cigarettes Alcohol Use: Occasionally Drug Use: None Adult General Chief Complaint Chief Complaint: PELVIC PAIN HPI HPI 32-year-old female patient complaining of urinary frequency and dysuria since yesterday with suprapubic pain as a constant pain that getting force with urination. Patient denies nausea and vomiting, diarrhea and constipation, fever and chills. Patient states she had frequent episodes of UTI and had at least 3 episodes of UTI for the last 2 months. Patient states she had vaginal bleeding after intercourse last night. Patient states she is with her current partner for the last 2 years and denies STD. Review of Systems Review of Systems Constitutional: Denies fever or chills [] Eyes: Denies change in visual acuity, redness, or eye pain [] HENT: Denies nasal congestion or sore throat [] Respiratory: Denies cough or shortness of breath [] Cardiovascular: No additional information not addressed in HPI [] GI: Reports abdominal pain, denies nausea, vomiting, bloody stools or diarrhea [ ] : Denies flank pain, reports dysuria or hematuria [] Musculoskeletal: Denies back pain or joint pain [] Integument: Denies rash or skin lesions [] Neurologic: Denies headache, focal weakness or sensory changes [] Endocrine: Denies polyuria or polydipsia [] All other systems were reviewed and found to be within normal limits, except as documented in this note. Current Medications Current Medications Current Medications Medications (Trade) Dose Ordered Sig/[facility] Start Time Stop Time Status Last Admin Dose Admin Acetaminophen/ Hydrocodone Bitart (Lortab 5/325) 1 tab 1X ONCE 11/08/17 11:45 11/08/17 11:47 DC 11/08/17 11:47 1 TAB Ceftriaxone Sodium (Rocephin Im) 1 gm 1X ONCE 11/08/17 11:45 11/08/17 11:47 DC 11/08/17 11:55 1 GM Ketorolac Tromethamine (Toradol) 60 mg 1X ONCE 11/08/17 11:15 11/08/17 11:21 DC 11/08/17 11:15 60 MG Allergies Allergies Allergies Coded Allergies Type Severity Reaction Last Updated Verified No Known Drug Allergies 08/24/17 No Physical Exam Physical Exam Constitutional: Well developed, well nourished, mild distress, non-toxic appearance, anxious. [] HENT: Normocephalic, atraumatic, bilateral external ears normal, oropharynx moist, no oral exudates, nose normal. [] Eyes: PERRLA, EOMI, conjunctiva normal, no discharge. [] Neck: Normal range of motion, no tenderness, supple, no stridor. [] Cardiovascular:Heart rate regular rhythm, no murmur [] Lungs & Thorax: Bilateral breath sounds clear to auscultation [] Abdomen: Bowel sounds normal, soft, no tenderness, supple with guarding, no masses, no pulsatile masses. 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 [] Back: No tenderness, no CVA tenderness. [] Extremities: No tenderness, no cyanosis, no clubbing, ROM intact, no edema. [] Neurologic: Alert and oriented X 3, normal motor function, normal sensory function, no focal deficits noted. [] Psychologic: Very anxious, judgement normal, mood normal. [] Current Patient Data Lab Results Laboratory Tests Test 11/08/17 10:06 11/08/17 10:55 POC Urine HCG, Qualitative hcg negative (Negative) Urine Collection Type Unknown Urine Color Straw Urine Clarity Hazy Urine pH 6.5 Urine Specific [place] 1.010 Urine Protein Neg (NEG-TRACE) Urine Glucose (UA) Neg mg/dL (NEG) Urine Ketones (Stick) Neg mg/dL (NEG) Urine Blood Small (NEG) Urine Nitrite Neg (NEG) Urine Bilirubin Neg (NEG) Urine Urobilinogen Dipstick 0.2 mg/dL (0.2 mg/dL) Urine Leukocyte Esterase Mod (NEG) Urine RBC Rare /HPF (0-2) Urine WBC >40 /HPF (0-4) Urine Squamous Epithelial Cells Few /LPF Urine Bacteria Few /HPF (0-FEW) Microbiology 11/08/17 Wet Prep - Final, Complete EKG EKG [] Radiology/Procedures Radiology/Procedures [] Course & Med Decision Making Course & Med Decision Making Pertinent Labs reviewed. (See chart for details) Evaluation of patient in ER showed 32-year-old female patient presented to ER with a symptom. Patient was very anxious and asking for Dilaudid and fentanyl for her pain. Patient treated with Toradol and Dailey and Rocephin in ER. Patient instructed to follow-up with her primary care physician for recurrent UTI Berta Disclaimer Berta Disclaimer This electronic medical record was generated, in whole or in part, using a voice recognition dictation system. Departure Departure: Impression: Primary Impression: Urinary tract infection Additional Impressions: Bacterial vaginitis Anxiety Tobacco abuse Tobacco abuse counseling Disposition: HOME, SELF-CARE (At 1220) Condition: IMPROVED Referrals: PCP,NO (PCP) Patient Instructions: Bacterial Vaginosis, Smoking Cessation, Urinary Tract Infection Additional Instructions: Drink plenty of liquids Follow-up with your primary care physician in 3-5 days Return to ER if not getting better Scripts Hydrocodone Bit/Acetaminophen (NORCO 5-325 TABLET) 1 Each Tablet 1 TAB PO PRN Q6HRS Y for PAIN, #14 TAB 0 Refills Prov: ASAF CABELLO MD 11/08/17 Phenazopyridine Hcl (PYRIDIUM) 100 Mg Tablet 100 MG PO BID, #14 TAB Prov: ASAF CABELLO MD 11/08/17 Ciprofloxacin Hcl (CIPRO) 250 Mg Tablet 1 TAB PO BID, #14 TAB Prov: ASAF CABELLO MD 11/08/17 Problem Qualifiers ASAF CABELLO MD November 08, 2017 12:21
[2017-11-08 12:35] VITALS: BP 107/73
== END 2017-11-08 12:35 | disposition home or self-care (01) ==
LOC: ER 10:42
DX: N39.0 Urinary tract infection, site not specified (principal); N76.0 Acute vaginitis; B96.89 Other specified bacterial agents as the cause of diseases classified elsewhere; F41.9 Anxiety disorder, unspecified; F17.210 Nicotine dependence, cigarettes, uncomplicated; Z71.6 Tobacco abuse counseling
CPT/HCPCS: 81001; 81025; 87086; 96372; 99284; J0696; J1885; Q0111

== ENCOUNTER 2019-04-02 11:56 | Emergency (ER) | payer MEDICAID, OTHER ==
[~2019-04-02] VITALS: Ht 172.7 cm; Wt 90.7 kg
[~2019-04-02 11:56] MED LIST changes: +CIPR250T30 PO; +HYDR-1179 PO; +HYDR-3165 PO; -HYDR-79 PO; -HYDR-971 PO; +PHEN100T82 PO
[2019-04-02 12:13] VITALS: BP 120/69
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
[2019-04-02] MEDS ORDERED: DICL50TA4 PO (13:06)
[2019-04-02] MEDS ORDERED: CYCL-331 PO (13:06)
== END 2019-04-02 13:25 | disposition home or self-care (01) ==
LOC: ER 11:56
DX: S39.012A Strain of muscle, fascia and tendon of lower back, initial encounter (principal); Z87.440 Personal history of urinary (tract) infections; F17.210 Nicotine dependence, cigarettes, uncomplicated; V89.2XXA Person injured in unspecified motor-vehicle accident, traffic, initial encounter; Y93.I9 Activity, other involving external motion; Y92.488 Other paved roadways as the place of occurrence of the external cause; Y99.8 Other external cause status
CPT/HCPCS: 72100; 99284

== ENCOUNTER 2019-04-10 15:49 | Emergency (ER) | payer MEDICAID ==
[~2019-04-10 15:49] MED LIST changes: +CYCL-331 PO; +DICL50TA4 PO
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
[2019-04-10 16:36] VITALS: BP 119/76
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
[2019-04-10] MEDS ORDERED: KETOROLAC 30 MG/ML VIAL. IM ONE (16:45)
[2019-04-10] MEDS ORDERED: OXAP600T2 PO (16:58)
[2019-04-10] MEDS ORDERED: ORPH-16 PO (16:58)
== END 2019-04-10 17:09 | disposition home or self-care (01) ==
LOC: ER 15:49
DX: M25.551 Pain in right hip (principal); T50.995A Adverse effect of other drugs, medicaments and biological substances, initial encounter; F17.210 Nicotine dependence, cigarettes, uncomplicated; Z87.440 Personal history of urinary (tract) infections; Y92.89 Other specified places as the place of occurrence of the external cause
CPT/HCPCS: 73502; 96372; 99284; J1885

== ENCOUNTER 2019-06-15 23:17 | Emergency (ER) | payer MEDICAID ==
[~2019-06-15] VITALS: Ht 172.7 cm; Wt 85.3 kg
[~2019-06-15 23:17] MED LIST changes: +ORPH-16 PO; +OXAP600T2 PO
[2019-06-15 23:20] VITALS: BP 125/73
[2019-06-15] MEDS ORDERED: ONDA4TAB12 PO (23:56)
[2019-06-16 00:11] LABS: BACTERIA,URINE FEW /HPF (0-FEW); BILIRUBIN,URINE NEG (NEG); CLARITY,URINE CLEAR; COLOR,URINE YELLOW; GLUCOSE,URINE NEG (NEG); NITRITE,URINE NEG (NEG); RBC,URINE OCC /HPF (0-2); UROBILINOGEN,URINE 1 mg/dL (0.2 mg/dL); WBC,URINE OCC /HPF (0-4)
--- NOTE | 2019-06-16 00:11 | RAD ---
Chest, PA and Lateral: Technique: PA and lateral views of the chest were obtained. History: Cough, fever. Comparison: 03/27/2017. Findings: The heart and pulmonary vasculature appear within normal limits. The lungs are clear. The pleural margins are clear. Impression: No acute chest process is seen. Electronically signed by: Earl Rodney MD (06/16/2019 12:08 AM) [facility]
[2019-06-16 00:12] LABS: AMORPHOUS SEDIMENT,UR PRESENT /HPF; SQUAMOUS EPITHELIAL CELL,UR MOD /LPF
[2019-06-16 00:15] LABS: INFLUENZA A PATIENT NEGATIVE (NEGATIVE); INFLUENZA B PATIENT NEGATIVE (NEGATIVE)
[2019-06-16] MEDS ORDERED: ONDANSETRON ODT 4 MG TAB.RAPDIS PO ONE (00:30)
--- NOTE | 2019-06-16 05:53 | PHYS DOC ---
Past History Past Medical History: No Pertinent History Past Surgical History: No Surgical History Smoking: Cigarettes Alcohol Use: None Drug Use: None Adult General Chief Complaint Chief Complaint: NAUSEA/VOMITING/DIARRHEA HPI HPI Patient is a [34 yo f who came to er after finding out urgent care was closed has two days of nausea fatigue body aches cough mild sore throat nephew at home has pna she was worried about that really no pain at this time inthe er denies abdo pain or chest pain no pmh no daily meds Review of Systems Review of Systems Constitutional: Denies fever or chills [] Eyes: Denies change in visual acuity, redness, or eye pain [] HENT: Denies nasal congestion or sore throat [] Respiratory: Denies cough or shortness of breath [] Cardiovascular: No additional information not addressed in HPI [] GI: Denies abdominal pain, nausea, vomiting, bloody stools or diarrhea [] : Denies dysuria or hematuria [] Musculoskeletal: Denies back pain or joint pain [] Integument: Denies rash or skin lesions [] Neurologic: Denies headache, focal weakness or sensory changes [] Endocrine: Denies polyuria or polydipsia [] All other systems were reviewed and found to be within normal limits, except as documented in this note. Current Medications Current Medications Current Medications Medications (Trade) Dose Ordered Sig/Chato Start Time Stop Time Status Last Admin Dose Admin Ondansetron HCl (Zofran Odt) 4 mg 1X ONCE 06/16/19 00:30 06/16/19 00:28 DC 06/16/19 00:03 4 MG Allergies Allergies Allergies Coded Allergies Type Severity Reaction Last Updated Verified No Known Drug Allergies 08/24/17 No Physical Exam Physical Exam Constitutional: Well developed, well nourished, no acute distress, non-toxic appearance. [] HENT: Normocephalic, atraumatic, bilateral external ears normal, oropharynx moist, no oral exudates, nose normal. [] Eyes: PERRLA, EOMI, conjunctiva normal, no discharge. [] Neck: Normal range of motion, no tenderness, supple, no stridor. [] Cardiovascular:Heart rate regular rhythm, no murmur [] Lungs & Thorax: Bilateral breath sounds clear to auscultation [] Abdomen: Bowel sounds normal, soft, no tenderness, no masses, no pulsatile masses. [] Skin: Warm, dry, no erythema, no rash. [] Back: No tenderness, no CVA tenderness. [] Extremities: No tenderness, no cyanosis, no clubbing, ROM intact, no edema. [] Neurologic: Alert and oriented X 3, normal motor function, normal sensory function, no focal deficits noted. [] Psychologic: Affect normal, judgement normal, mood normal. [] Current Patient Data Vital Signs Vital Signs Date Time Temp Pulse Resp B/P (MAP) Pulse Ox O2 Delivery O2 Flow Rate FiO2 06/15/19 23:20 97.6 82 14 97 Room Air Lab Results Laboratory Tests Test 06/15/19 23:25 06/15/19 23:43 06/15/19 23:44 Urine Collection Type Unknown Urine Color Yellow Urine Clarity Clear Urine pH 8.5 Urine Specific [place] 1.020 Urine Protein Neg (NEG-TRACE) Urine Glucose (UA) Neg mg/dL (NEG) Urine Ketones (Stick) Trace mg/dL (NEG) Urine Blood Mod (NEG) Urine Nitrite Neg (NEG) Urine Bilirubin Neg (NEG) Urine Urobilinogen Dipstick 1 mg/dL (0.2 mg/dL) Urine Leukocyte Esterase Neg (NEG) Urine RBC Occ /HPF (0-2) Urine WBC Occ /HPF (0-4) Urine Squamous Epithelial Cells Mod /LPF Urine Amorphous Sediment Present /HPF Urine Bacteria Few /HPF (0-FEW) POC Urine HCG, Qualitative hcg negative (Negative) Influenza Type A (Rapid) Negative (NEGATIVE) Influenza Type B (Rapid) Negative (NEGATIVE) EKG EKG [] * None Temperature (Fahrenheit): * 97.6 degrees F (97.6-99.5) Patient Temperature * 97.6 degrees F (97.5-99.5) Temperature Source * Oral Blood Pressure Systolic * 125 mm Hg (100-140) Blood Pressure Diastolic * 73 mm Hg (60-100) Blood Pressure Mean * 90 mm Hg Blood Pressure Location * Right Arm Blood Pressure Source * Automatic Cuff Pulse Rate * 82 beats per minute (60-90) Pulse Assessment Method * Monitor Respiratory Rate * 14 breaths per minute (12-24) Oxygen Delivery Method * Room Air Radiology/Procedures Radiology/Procedures [] Impressions: Findings: The heart and pulmonary vasculature appear within normal limits. The lungs are clear. The pleural margins are clear. Impression: No acute chest process is seen. Electronically signed by: Earl Rodney MD (06/16/2019 12:08 AM) [facility] DICTATED AND SIGNED BY: EARL RODNEY MD DATE: 06/16/19 0008 CC: VICENTE NICE MD; PCP,NO ~ Course & Med Decision Making Course & Med Decision Making Pertinent Labs and Imaging studies reviewed. (See chart for details) []urine vitals cxr and flu negative. abdo exam benign likely viral syndrome patient reassured Dragon Disclaimer Dragon Disclaimer This electronic medical record was generated, in whole or in part, using a voice recognition dictation system. Departure Departure: Impression: Primary Impression: Nausea Disposition: 01 HOME, SELF-CARE Condition: STABLE Patient Instructions: Nausea and Vomiting, [id number] Scripts Ondansetron (ONDANSETRON ODT) 4 Mg Tab.rapdis 1 TAB PO PRN Q6-8HRS PRN for NAUSEA/VOMITING, #16 TAB Prov: VICENTE NICE MD 06/15/19 VICENTE NICE MD Jun 16, 2019 05:53
== END 2019-06-16 00:25 | disposition home or self-care (01) ==
LOC: ER 23:17
DX: R11.0 Nausea (principal); J02.9 Acute pharyngitis, unspecified; M79.10 Myalgia, unspecified site; R53.83 Other fatigue; F17.210 Nicotine dependence, cigarettes, uncomplicated
CPT/HCPCS: 71046; 81001; 81025; 87804; 99285; Q0162

== ENCOUNTER 2019-06-19 16:20 | Emergency (ER) | payer MEDICAID ==
[~2019-06-19] VITALS: Ht 172.7 cm; Wt 96.6 kg
[2019-06-19 16:28] VITALS: BP 132/73
[2019-06-19] MEDS ORDERED: IV NORMAL SALINE 1,000ML 1,000 ML IV SCH (16:40)
--- NOTE | 2019-06-19 16:46 | PHYS DOC ---
Past History Past Medical History: No Pertinent History (MILDRED DIAZ DO) Past Surgical History: No Surgical History (MILDRED DIAZ DO) Smoking: Cigarettes Alcohol Use: None Drug Use: None (MILDRED DIAZ DO) Adult General Chief Complaint Chief Complaint: SYNCOPE HPI HPI Patient is a 34-year-old female presents after several syncopal episodes today. 5 days ago she was seen in the emergency department due to a nausea, vomiting, diarrheal illness which continues. She did not fill her prescription for antiemetics. She return to work today and had several episodes while sitting where everything "blacked out" for a few seconds. She did not lose bowel or bladder control. She did not fall out of her chair. No reported seizure activity. No head injury. She denies any chest pain or palpitations. She reports being lightheaded with standing up..[] (MILDRED DIAZ DO) Review of Systems Review of Systems Constitutional: Denies fever or chills [] Eyes: Denies change in visual acuity, redness, or eye pain [] HENT: Denies nasal congestion or sore throat [] Respiratory: Denies cough or shortness of breath [] Cardiovascular: No chest pain or palpitations[] GI: Denies abdominal pain, nausea, vomiting, bloody stools or diarrhea [] : Denies dysuria or hematuria [] Musculoskeletal: Denies back pain or joint pain [] Integument: Denies rash or skin lesions [] Neurologic: Denies headache, focal weakness or sensory changes [] Endocrine: Denies polyuria or polydipsia [] All other systems were reviewed and found to be within normal limits, except as documented in this note. (MILDRED DIAZ DO) Allergies Allergies Allergies Coded Allergies Type Severity Reaction Last Updated Verified No Known Drug Allergies 08/24/17 No (MILDRED DIAZ DO) Physical Exam Physical Exam Constitutional: Well developed, well nourished, no acute distress, non-toxic appearance. [] HENT: Normocephalic, atraumatic, bilateral external ears normal, oropharynx moist, no oral exudates, nose normal. [] Eyes: PERRLA, EOMI, conjunctiva normal, no discharge. [] Neck: Normal range of motion, no tenderness, supple, no stridor. [] Cardiovascular:Heart rate regular rhythm, no murmur [] Lungs & Thorax: Bilateral breath sounds clear to auscultation [] Abdomen: Bowel sounds normal, soft, no tenderness, no masses, no pulsatile masses. [] Skin: Warm, dry, no erythema, no rash. [] Back: No tenderness, no CVA tenderness. [] Extremities: No tenderness, no cyanosis, no clubbing, ROM intact, no edema. [] Neurologic: Alert and oriented X 3, normal motor function, normal sensory function, no focal deficits noted. [] Psychologic: Affect normal, judgement normal, mood normal. [] ([facility],MILDRED DO) Current Patient Data Vital Signs Vital Signs Date Time Temp Pulse Resp B/P (MAP) Pulse Ox O2 Delivery O2 Flow Rate FiO2 06/19/19 16:28 98.4 74 16 97 Room Air Lab Results Laboratory Tests Test 06/19/19 17:00 06/19/19 17:22 White Blood Count 7.5 x10^3/uL Red Blood Count 4.56 x10^6/uL Hemoglobin 14.9 g/dL Hematocrit 44.9 % Mean Corpuscular Volume 99 fL Mean Corpuscular Hemoglobin 33 pg Mean Corpuscular Hemoglobin Concent 33 g/dL Red Cell Distribution Width 13.9 % Platelet Count 253 x10^3/uL Neutrophils (%) (Auto) 62 % Lymphocytes (%) (Auto) 28 % Monocytes (%) (Auto) 8 % Eosinophils (%) (Auto) 1 % Basophils (%) (Auto) 1 % Neutrophils # (Auto) 4.6 x10^3uL Lymphocytes # (Auto) 2.1 x10^3/uL Monocytes # (Auto) 0.6 x10^3/uL Eosinophils # (Auto) 0.1 x10^3/uL Basophils # (Auto) 0.1 x10^3/uL Sodium Level 141 mmol/L Potassium Level 4.1 mmol/L Chloride Level 105 mmol/L Carbon Dioxide Level 29 mmol/L Anion Gap 7 Blood Urea Nitrogen 11 mg/dL Creatinine 0.8 mg/dL Estimated GFR (Cockcroft-Gault) 82.1 BUN/Creatinine Ratio 14 Glucose Level 102 mg/dL Calcium Level 9.8 mg/dL Magnesium Level 2.0 mg/dL Total Bilirubin 0.2 mg/dL Aspartate Amino Transf (AST/SGOT) 18 U/L Alanine Aminotransferase (ALT/SGPT) 27 U/L Alkaline Phosphatase 68 U/L Troponin I Quantitative < 0.017 ng/mL RP-Ysz-H-Type Natriuretic Peptide 8 pg/mL Total Protein 7.3 g/dL Albumin 3.7 g/dL Albumin/Globulin Ratio 1.0 Lipase 178 U/L Urine Collection Type Unknown Urine Color Yellow Urine Clarity Hazy Urine pH 7.0 Urine Specific [place] 1.015 Urine Protein Neg Urine Glucose (UA) Neg mg/dL Urine Ketones (Stick) Neg mg/dL Urine Blood Neg Urine Nitrite Neg Urine Bilirubin Neg Urine Urobilinogen Dipstick 0.2 mg/dL Urine Leukocyte Esterase Neg Urine RBC 0 /HPF Urine WBC 0 /HPF Urine Squamous Epithelial Cells Occ /LPF Urine Amorphous Sediment Present /HPF Urine Bacteria 0 /HPF Urine Opiates Screen Neg Urine Methadone Screen Neg Urine Barbiturates Neg Urine Phencyclidine Screen Neg Urine Amphetamine/Methamphetamine Neg Urine Benzodiazepines Screen Neg Urine Cocaine Screen Neg Urine Cannabinoids Screen Pos Urine Ethyl Alcohol Neg Current Medications Medications (Trade) Dose Ordered Sig/Chato Route PRN Reason Start Time Stop Time Status Last Admin Dose Admin Sodium Chloride 1,000 ml @ 1,000 mls/hr Q1H IV 06/19/19 16:40 06/19/19 17:39 DC 06/19/19 16:40 Ondansetron HCl (Zofran) 8 mg 1X ONCE IV 06/19/19 17:00 06/19/19 17:01 DC 06/19/19 17:00 (MILDRED DIAZ DO) EKG EKG EKG shows a sinus rhythm at 62 bpm, normal axis, QTC of 398 ms, no ST elevation. Interpreted by me at 1650.[] (MILDRED DIAZ DO) Radiology/Procedures Radiology/Procedures PROCEDURE: PORTABLE CHEST 1V Indication: Syncope TECHNIQUE:Portable AP chest X-ray COMPARISON: 06/16/2019 FINDINGS: Heart is normal in size. Lungs are clear. No pneumothorax or pleural effusion. Visualized bony thorax within normal limits. IMPRESSION: No acute pulmonary process.[] (MILDRED DIAZ DO) Radiology/Procedures [address] [address] IMAGING REPORT Signed PATIENT: CAYDEN WATT NOELCOUNT: [id number] : 1985 LOCATION: ER AGE: 34 SEX: F EXAM STATUS: REG ER ORD. PHYSICIAN: MILDRED DIAZ DO REASON: syncope PROCEDURE: PORTABLE CHEST 1V Indication: Syncope TECHNIQUE:Portable AP chest X-ray COMPARISON: 06/16/2019 FINDINGS: Heart is normal in size. Lungs are clear. No pneumothorax or pleural effusion. Visualized bony thorax within normal limits. IMPRESSION: No acute pulmonary process. Electronically signed by: Wilton Riley DO (06/19/2019 5:21 PM) [facility] DICTATED AND SIGNED BY: WILTON RILEY DO DATE: 06/19/19 1721 CC: MILDRED DIAZ DO; [address] [address] IMAGING REPORT Signed PATIENT: CAYDEN WATT JACCOUNT: [id number] : 1985 LOCATION: ER AGE: 34 SEX: F EXAM STATUS: DEP ER ORD. PHYSICIAN: FER IHDALGO MD REASON: dizzy, syncope PROCEDURE: CT HEAD WO CONTRAST PQRS Compliance statement: One or more of the following individualized dose reduction techniques were utilized for this examination: 1. Automated exposure control. 2. Adjustment of the mA and/or kV according to patient size. 3. Use of iterative reconstruction technique. Indication: Dizziness and syncope. TECHNIQUE: CT head without IV contrast COMPARISON: 03/27/2017 FINDINGS: No pathologic extra-axial or intra-axial fluid collection. The ventricles and basal cisterns are within normal limits. No acute intracranial bleed. No focal loss of rogers-white differentiation. Orbits are within normal limits. No suspicious calvarial lesion. Visualized paranasal sinuses and mastoid air cells are clear. IMPRESSION: No acute intracranial bleed or calvarial fracture. If concern for acute ischemic stroke is high, please consider MRI brain. Electronically signed by: Wilton Riley DO (06/19/2019 8:50 PM) [facility] DICTATED AND SIGNED BY: WILTON RILEY DO DATE: 06/19/192049 CC: FER HIDALGO MD; PCP,NO ~ (FER HIDALGO MD) Course & Med Decision Making Course & Med Decision Making Pertinent Labs and Imaging studies reviewed. (See chart for details) Emergency department course: Patient arrived, was placed in bed, and tolerated exam well. IV access was established, she was given IV fluids, and antibiotics. Chest x-ray was obtained without any complications. Orthostatic vital signs were obtained in the midst of the IV fluids that showed no significant increase in heart rate nor decrease in blood pressure with going from supine to standing positions. Findings and plan were discussed with patient and her fianc who voiced understanding. All questions were answered. She was discharged in improved condition. Medical decision making: Patient appears to have a viral illness. Influenza was -5 days ago. Did not repeated given the length of time of the symptoms. There is no evidence of cardiac dysrhythmia while patient has been in the emergency department. No evidence of significant electrolyte abnormality. No evidence of this being an acute coronary syndrome.[] (MILDRED DIAZ DO) Course & Med Decision Making Impression: 1. Viral Syndrome (FER HIDALGO MD) Dragon Disclaimer Dragon Disclaimer This electronic medical record was generated, in whole or in part, using a voice recognition dictation system. (MILDRED DIAZ DO) Departure Departure: Impression: Primary Impression: Nausea and vomiting Additional Impressions: Dehydration Viral syndrome Syncope Disposition: 01 HOME, SELF-CARE Condition: IMPROVED Referrals: PCP,NO (PCP) Patient Instructions: Dehydration, Adult, Nausea and Vomiting, Syncope, Viral Syndrome Additional Instructions: Drink plenty of fluids, frequent small sips. No fatty foods, no milk, and no pepper for the next 48 hours. For the next 48 hours eat a diet rich in carbohydrates with foods such as bananas, rice, applesauce, and toast. Do not use any drugs or medicines that are not prescribed for you, they may kill you! Follow-up with your regular doctor in 2 days. If you do not have regular doctor list of local clinics will be provided. Return to the ER if unable to tolerate liquids, blood in stool or emesis, or any other concerns Scripts Hyoscyamine Sulfate (LEVSIN) 0.125 Mg Tablet 0.125 MG PO QID for abdominal pain/cramping, #30 TAB Prov: MILDRED DIAZ DO 06/19/19 Metoclopramide Hcl (REGLAN) 10 Mg Tablet 10 MG PO QID for nausea and vomiting, #30 TAB Prov: MILDRED DIAZ DO 06/19/19 Problem Qualifiers Primary Impression: Nausea and vomiting Vomiting type: unspecified Vomiting Intractability: non-intractable Qualified Codes: R11.2 - Nausea with vomiting, unspecified Additional Impressions: Syncope Syncope type: unspecified Qualified Codes: R55 - Syncope and collapse MILDRED DIAZ DO Jun 19, 2019 16:46 FER HIDALGO MD Jun 19, 2019 19:36
--- NOTE | 2019-06-19 16:49 | EKG ---
[address] [address] Test Date: 2019-06-19 Test Time: 16:48:06 Pat Name: CAYDEN WATT Department: Room: Gender: F [employer]: : 1985 Requested By: MILDRED DIAZ Order Number: [id number] Reading MD: Measurements Intervals [place] Rate: 62 P: 27 CO: 160 QRS: 41 QRSD: 80 T: 22 QT: 390 QTc: 398 Interpretive Statements SINUS RHYTHM NO SPECIFIC ECG ABNORMALITIES RI6.01 Compared to ECG 03/27/2017 20:17:10 ST (T wave) deviation no longer present
[2019-06-19] MEDS ORDERED: ONDANSETRON PF 4 MG/2 ML VIAL. IV ONE (17:00)
[2019-06-19 17:15] LABS: BASO # 0.1 x10^3/uL (0.0-0.2); BASO % 1 % (0-3); EOS # 0.1 x10^3/uL (0.0-0.7); EOS % 1 % (0-3); HEMATOCRIT 44.9 % (36.0-47.0); HEMOGLOBIN 14.9 g/dL (12.0-15.5); LYMPH # 2.1 x10^3/uL (1.0-4.8); LYMPH % 28 % (24-48); MEAN CORPUSCULAR HEMOGLOBIN 33 pg (25-35); MEAN CORPUSCULAR HGB CONC 33 g/dL (31-37); MEAN CORPUSCULAR VOLUME 99 fL (79-100); MONO # 0.6 x10^3/uL (0.0-1.1); MONO % 8 % (0-9); NEUT # 4.6 x10^3uL (1.8-7.7); NEUT % 62 % (31-73); PLATELET COUNT 253 x10^3/uL (140-400); RED BLOOD COUNT 4.56 x10^6/uL (3.50-5.40); RED CELL DISTRIBUTION WIDTH 13.9 % (11.5-14.5); WHITE BLOOD COUNT 7.5 x10^3/uL (4.0-11.0)
--- NOTE | 2019-06-19 17:24 | RAD ---
Indication: Syncope TECHNIQUE:Portable AP chest X-ray COMPARISON: 06/16/2019 FINDINGS: Heart is normal in size. Lungs are clear. No pneumothorax or pleural effusion. Visualized bony thorax within normal limits. IMPRESSION: No acute pulmonary process. Electronically signed by: Curry Riley DO (06/19/2019 5:21 PM) [facility]
[2019-06-19 17:37] LABS: ALBUMIN 3.7 g/dL (3.4-5.0); CALCIUM 9.8 mg/dL (8.5-10.1); CREATININE 0.8 mg/dL (0.6-1.0); GFR 82.1; POTASSIUM 4.1 mmol/L (3.5-5.1); TOTAL BILIRUBIN 0.2 mg/dL (0.2-1.0); TOTAL PROTEIN 7.3 g/dL (6.4-8.2)
[2019-06-19 17:39] LABS: BARBITURATES NEG (NEG); BENZODIAZEPINES NEG (NEG); CANNABINOIDS POS (NEG); COCAINE NEG (NEG); METHADONE NEG (NEG); OPIATES NEG (NEG); PHENCYCLIDINE NEG (NEG)
[2019-06-19 17:40] LABS: AMPHETAMINE/METHAMPHETAMINE NEG (NEG)
[2019-06-19 17:43] LABS: AMORPHOUS SEDIMENT,UR PRESENT /HPF; BACTERIA,URINE 0 /HPF (0-FEW); BILIRUBIN,URINE NEG (NEG); CLARITY,URINE HAZY; COLOR,URINE YELLOW; GLUCOSE,URINE NEG (NEG); NITRITE,URINE NEG (NEG); RBC,URINE 0 /HPF (0-2); SQUAMOUS EPITHELIAL CELL,UR OCC /LPF; UROBILINOGEN,URINE 0.2 mg/dL (0.2 mg/dL); WBC,URINE 0 /HPF (0-4)
[2019-06-19] MEDS ORDERED: METO10TA81 PO (18:13)
[2019-06-19] MEDS ORDERED: HYOS0.1264 PO (18:13)
[2019-06-19] MEDS ORDERED: IV RINGERS SOLUTION,LACTATED 1,000 ML IV ONE (18:45)
--- NOTE | 2019-06-19 20:52 | RAD ---
PQRS Compliance statement: One or more of the following individualized dose reduction techniques were utilized for this examination: 1. Automated exposure control. 2. Adjustment of the mA and/or kV according to patient size. 3. Use of iterative reconstruction technique. Indication: Dizziness and syncope. TECHNIQUE: CT head without IV contrast COMPARISON: 03/27/2017 FINDINGS: No pathologic extra-axial or intra-axial fluid collection. The ventricles and basal cisterns are within normal limits. No acute intracranial bleed. No focal loss of rogers-white differentiation. Orbits are within normal limits. No suspicious calvarial lesion. Visualized paranasal sinuses and mastoid air cells are clear. IMPRESSION: No acute intracranial bleed or calvarial fracture. If concern for acute ischemic stroke is high, please consider MRI brain. Electronically signed by: Curry Riley DO (06/19/2019 8:50 PM) [facility]
== END 2019-06-19 20:30 | disposition home or self-care (01) ==
LOC: ER 16:20
DX: E86.0 Dehydration (principal); B34.9 Viral infection, unspecified; R55 Syncope and collapse; F17.210 Nicotine dependence, cigarettes, uncomplicated
CPT/HCPCS: 36415; 70450; 71045; 80053; 80307; 81001; 83690; 83735; 83880; 84484; 85025; 85379; 93005; 96361; 96374; 99285; J2405; J7120; J7030

== ENCOUNTER 2019-11-02 12:45 | Emergency (ER) | payer MEDICAID ==
[~2019-11-02] VITALS: Ht 172.7 cm; Wt 85.0 kg
[~2019-11-02 12:45] MED LIST changes: +HYOS0.1264 PO; +METO10TA81 PO
[2019-11-02] MEDS ORDERED: IV NORMAL SALINE 1,000ML 1,000 ML IV ONE (13:00)
[2019-11-02] MEDS ORDERED: ONDANSETRON PF 4 MG/2 ML VIAL. ONE (13:15)
[2019-11-02] MEDS ORDERED: ONDANSETRON PF 4 MG/2 ML VIAL. IVP ONE (13:30)
[2019-11-02 13:38] LABS: BASO # 0.1 x10^3/uL (0.0-0.2); BASO % 1 % (0-3); EOS % 1 % (0-3); HEMATOCRIT 42.2 % (36.0-47.0); LYMPH % 28 % (24-48); MEAN CORPUSCULAR HEMOGLOBIN 33 pg (25-35); MEAN CORPUSCULAR HGB CONC 33 g/dL (31-37); MEAN CORPUSCULAR VOLUME 98 fL (79-100); MONO # 0.5 x10^3/uL (0.0-1.1); MONO % 7 % (0-9); NEUT # 4.7 x10^3uL (1.8-7.7); NEUT % 64 % (31-73); PLATELET COUNT 266 x10^3/uL (140-400); RED CELL DISTRIBUTION WIDTH 13.6 % (11.5-14.5); WHITE BLOOD COUNT 7.3 x10^3/uL (4.0-11.0)
[2019-11-02 13:48] LABS: ANION GAP 13 (6-14); BLOOD UREA NITROGEN 7 mg/dL (7-20); BUN/CREATININE RATIO 10 (6-20); CALCIUM 8.9 mg/dL (8.5-10.1); CARBON DIOXIDE 22 mmol/L (21-32); CHLORIDE 107 mmol/L (98-107); CREATININE 0.7 mg/dL (0.6-1.0); GFR 95.8; GLUCOSE 99 mg/dL (70-99); POTASSIUM 3.5 mmol/L (3.5-5.1); SODIUM 142 mmol/L (136-145)
[2019-11-02 13:56] LABS: INFLUENZA A PATIENT NEGATIVE (NEGATIVE); INFLUENZA B PATIENT NEGATIVE (NEGATIVE)
--- NOTE | 2019-11-02 14:03 | PHYS DOC ---
Past History Past Medical History: No Pertinent History Past Surgical History: No Surgical History Smoking: Cigarettes Alcohol Use: Rarely Drug Use: None General Adult EDM: Chief Complaint: COUGH HPI: HPI: 34-year-old female presents with 3 day history of generalized weakness, near syncope, headache, and nausea and vomiting. Patient does report a dry cough. Reports that she has been around a child (friend's daughter) who had been pres umed to have COVID 19. Test results were pending. Patient does report some associated subjective fever. Denies taking any medication prior to arrival. Denies . Review of Systems: Review of Systems: Constitutional: Reports subjective fever and chills; reports body aches and generalized malaise Eyes: Denies redness or eye pain HENT: Denies nasal congestion or sore throat Respiratory: Reports dry cough and shortness of breath Cardiovascular: Denies chest pain or palpitations GI: Denies abdominal pain; reports nausea and vomiting : Denies dysuria or hematuria Musculoskeletal: Denies back pain or joint pain Integument: Denies rash or skin lesions Neurologic: Reports headache; denies focal weakness or sensory changes Complete systems were reviewed and found to be within normal limits, except as documented in this note. Current Medications: Current Meds: Current Medications Medications (Trade) Dose Ordered Sig/Chato Start Time Stop Time Status Last Admin Dose Admin Lorazepam (Ativan Inj) 0.5 mg 1X ONCE 11/02/19 13:30 11/02/19 13:31 DC Ondansetron HCl (Zofran) 4 mg 1X ONCE 11/02/19 13:30 11/02/19 13:31 DC Sodium Chloride 1,000 ml @ 1,000 mls/hr 1X ONCE 11/02/19 13:00 11/02/19 13:59 DC Allergies: Allergies: Allergies Coded Allergies Type Severity Reaction Last Updated Verified No Known Drug Allergies 08/24/17 No Physical Exam: PE: Constitutional: Well developed, well nourished, uncomfortable but non-toxic appearance HENT: Normocephalic, atraumatic Eyes: PERRL, EOMI, conjunctiva normal, no discharge Neck: Normal range of motion, no tenderness, supple, no meningeal signs Cardiovascular: Heart rate tachycardic, regular rhythm Lungs & Thorax: Bilateral breath sounds clear to auscultation, no wheezing Abdomen: Soft, no tenderness, no guarding/rebound tenderness/distention Skin: Warm, dry, no erythema, no rash Back: No tenderness, no CVA tenderness Extremities: No tenderness, ROM intact, no edema Neurologic: Alert and oriented X 3, normal motor function, normal sensory function, no focal deficits noted Psychologic: Affect normal, judgment normal Current Patient Data: Labs: Laboratory Tests Test 11/02/19 13:09 11/02/19 13:10 Influenza Type A (Rapid) Negative (NEGATIVE) Influenza Type B (Rapid) Negative (NEGATIVE) Group A Streptococcus Rapid Negative (NEGATIVE) White Blood Count 7.3 x10^3/uL (4.0-11.0) Red Blood Count 4.30 x10^6/uL (3.50-5.40) Hemoglobin 14.0 g/dL (12.0-15.5) Hematocrit 42.2 % (36.0-47.0) Mean Corpuscular Volume 98 fL (79-100) Mean Corpuscular Hemoglobin 33 pg (25-35) Mean Corpuscular Hemoglobin Concent 33 g/dL (31-37) Red Cell Distribution Width 13.6 % (11.5-14.5) Platelet Count 266 x10^3/uL (140-400) Neutrophils (%) (Auto) 64 % (31-73) Lymphocytes (%) (Auto) 28 % (24-48) Monocytes (%) (Auto) 7 % (0-9) Eosinophils (%) (Auto) 1 % (0-3) Basophils (%) (Auto) 1 % (0-3) Neutrophils # (Auto) 4.7 x10^3uL (1.8-7.7) Lymphocytes # (Auto) 2.0 x10^3/uL (1.0-4.8) Monocytes # (Auto) 0.5 x10^3/uL (0.0-1.1) Eosinophils # (Auto) 0.0 x10^3/uL (0.0-0.7) Basophils # (Auto) 0.1 x10^3/uL (0.0-0.2) Prothrombin Time 9.9 SEC (9.4-11.4) Prothrombin Time INR 1.0 (0.9-1.1) Activated Partial Thromboplast Time 24 SEC (23-33) D-Dimer (Mackenzie) 0.47 mg/L (0.00-0.50) Sodium Level 142 mmol/L (136-145) Potassium Level 3.5 mmol/L (3.5-5.1) Chloride Level 107 mmol/L (98-107) Carbon Dioxide Level 22 mmol/L (21-32) Anion Gap 13 (6-14) Blood Urea Nitrogen 7 mg/dL (7-20) Creatinine 0.7 mg/dL (0.6-1.0) Estimated GFR (Cockcroft-Gault) 95.8 BUN/Creatinine Ratio 10 (6-20) Glucose Level 99 mg/dL (70-99) Lactic Acid Level 1.3 mmol/L (0.4-2.0) Calcium Level 8.9 mg/dL (8.5-10.1) Total Bilirubin Pending Aspartate Amino Transferase (AST) Pending Alanine Aminotransferase (ALT) Pending Alkaline Phosphatase Pending Lactate Dehydrogenase Pending Creatine Kinase Pending Creatine Kinase MB (Mass) Pending Creatine Kinase MB Relative Index Pending Troponin I Quantitative < 0.017 ng/mL (0-0.055) BT-Abo-K-Type Natriuretic Peptide Pending Total Protein Pending Albumin Pending Albumin/Globulin Ratio Pending Vital Signs: Vital Signs Date Time Temp Pulse Resp B/P (MAP) Pulse Ox O2 Delivery O2 Flow Rate FiO2 11/02/19 12:45 98.7 74 24 125/70 (88) 98 Room Air EKG: EKG: @1242 NSR at 69bpm, NO ST elevation, QRS 96ms, QT/QTc 393/421ms Radiology/Procedures: Radiology/Procedures: PROCEDURE: PORTABLE CHEST 1V PORTABLE CHEST 1V Clinical indications: Weakness and cough and shortness of air. COMPARISON: June 19, 2019. Findings: No acute lung infiltrate or pleural effusion or pulmonary edema or lung mass or pneumothorax is seen. The heart size, pulmonary vasculature, mediastinum and both louis are stable. Impression: No acute radiographic abnormality is seen. Electronically signed by: Gustavo Us MD (11/02/2019 2:03 PM) [id number] Course & Med Decision Making: Course & Med Decision Making Pertinent Labs and Imaging studies reviewed. (See chart for details) Patient presents via EMS with multiple complaints including generalized malaise/weakness, near syncope, headache, dry cough, and nausea and vomiting. Patient with concern for exposure to COVID19. Labs obtained and posted to chart. WBC and lactic acid WNL. Rapid influenza and rapid strep negative. Ddimer WNL. CXR without acute process. IVF hydration given. Symptomatic treatment also provided. Patient with interval improvement of symptoms. Patient stable for discharge with outpatient follow-up with PCP. Discussed findings and plan with patient, who acknowledges understanding and agreement. Patient educated to self quarantine. COVID-19 CRITERIA: The patient was evaluated during the global COVID-19 pandemic, and that diagnosis was suspected/considered upon their initial presentation. Their evaluation, treatment and testing was consistent with current guidelines for patients who present with complaints or symptoms that may be related to COVID-19. Dragon Disclaimer: [employer] Disclaimer: This electronic medical record was generated, in whole or in part, using a voice recognition dictation system. Departure Departure: Impression: Primary Impression: Viral syndrome Additional Impressions: Headache Qualified Codes: R51 - Headache Suspected COVID-19 virus infection Nausea Disposition: HOME, SELF-CARE Condition: STABLE Referrals: PCP,NO (PCP) Patient Instructions: Headache, FAQs, Incentive Spirometer, Nausea, Adult, [id number], Viral Syndrome Additional Instructions: Please self quarantine for 14 days past symptoms resolution. Maintain distance from anyone as you may pass your infection to them. Treat fever as needed. Take pain medication as needed. Use spirometer 10x in a row 5x daily for next week. Scripts Hydrocodone Bit/Acetaminophen (NORCO 5-325 TABLET) 1 Each Tablet 0.5-1 TAB PO Q6HRS PRN for PAIN, #14 TAB Prov: KATLYN NUNES DO 11/02/19 COVID-19 Assessment COVID-19 Patient Risks: Age 65 or older: No Sign of co-morbidity: No Exp to person + for COVID: No Exp to PUI: Yes Travel from affected area: No Lower respiratory symptoms: Yes Fever: Yes (subjective) PPE Use: Full PPE with N95 mask or PAPR: Yes KATLYN NUNES DO Nov 02, 2019 14:03
[2019-11-02 14:04] LABS: ALBUMIN 3.6 g/dL (3.4-5.0); ALBUMIN/GLOBULIN RATIO 1.1 (1.0-1.7); ALK PHOS 52 U/L (46-116); ALT (SGPT) 22 U/L (14-59); AST (SGOT) 12 U/L (15-37); LACTATE DEHYDROGENASE 144 U/L (81-234); TOTAL BILIRUBIN 0.5 mg/dL (0.2-1.0); TOTAL PROTEIN 6.9 g/dL (6.4-8.2)
--- NOTE | 2019-11-02 14:06 | RAD ---
PORTABLE CHEST 1V Clinical indications: Weakness and cough and shortness of air. COMPARISON: June 19, 2019. Findings: No acute lung infiltrate or pleural effusion or pulmonary edema or lung mass or pneumothorax is seen. The heart size, pulmonary vasculature, mediastinum and both louis are stable. Impression: No acute radiographic abnormality is seen. Electronically signed by: Gustavo Us MD (11/02/2019 2:03 PM) [id number]
[2019-11-02] MEDS ORDERED: KETOROLAC 15 MG/ML VIAL. IVP ONE (14:30)
[2019-11-02 14:49] LABS: BILIRUBIN,URINE NEG (NEG); CLARITY,URINE CLEAR; COLOR,URINE YELLOW; GLUCOSE,URINE NEG (NEG); UROBILINOGEN,URINE 0.2 mg/dL (0.2 mg/dL)
[2019-11-02 14:50] LABS: NITRITE,URINE NEG (NEG)
[2019-11-02 14:51] VITALS: BP 130/94
[2019-11-02 15:04] LABS: U PREG PATIENT NEGATIVE (NEG)
[2019-11-02 15:05] LABS: BACTERIA,URINE FEW /HPF (0-FEW); WBC,URINE 0 /HPF (0-4)
[2019-11-02 15:06] LABS: SQUAMOUS EPITHELIAL CELL,UR FEW /LPF
[2019-11-02] MEDS ORDERED: HYDROcodone/APAP 5/325MG 1 TAB TABLET PO ONE (16:00)
[2019-11-02] MEDS ORDERED: HYDR-3165 PO (16:01)
--- NOTE | 2019-11-02 16:58 | EKG ---
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
== END 2019-11-02 16:15 | disposition home or self-care (01) ==
LOC: ER 12:45
DX: Z03.818 Encounter for observation for suspected exposure to other biological agents ruled out (principal); B34.9 Viral infection, unspecified; R51 Headache; R11.2 Nausea with vomiting, unspecified; F17.210 Nicotine dependence, cigarettes, uncomplicated
CPT/HCPCS: 36415; 71045; 80053; 81001; 81025; 82553; 82728; 83605; 83615; 83880; 84484; 85025; 85379; 85610; 85730; 87040; 87070; 87635; 87804; 87880; 93005; 96361; 96374; 96375; 99285; J1885; J2060; J2405; J7030

== ENCOUNTER 2020-03-28 17:25 | Emergency (ER) | payer MEDICAID ==
[~2020-03-28] VITALS: Ht 172.7 cm; Wt 80.5 kg
[2020-03-28 17:30] VITALS: BP 106/63
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
[2020-03-28] MEDS ORDERED: HYDR-1179 PO ×2 (17:59→18:21)
[2020-03-28] MEDS ORDERED: BACITRACIN ZINC TOPICAL OINT PACKET. TP ONE (18:00)
[2020-03-28] MEDS ORDERED: HYDROcodon/IBUPROFEN 7.5/200MG 1 TAB TABLET PO ONE (18:00)
== END 2020-03-28 18:25 | disposition home or self-care (01) ==
LOC: ER 17:25
DX: T23.001A Burn of unspecified degree of right hand, unspecified site, initial encounter (principal); F17.210 Nicotine dependence, cigarettes, uncomplicated; X13.1XXA Other contact with steam and other hot vapors, initial encounter; Y93.89 Activity, other specified; Y92.89 Other specified places as the place of occurrence of the external cause; Y99.8 Other external cause status
CPT/HCPCS: 99283

== ENCOUNTER 2021-01-03 16:27 | Emergency (ER) | payer MEDICAID ==
[~2021-01-03] VITALS: Ht 172.7 cm; Wt 80.0 kg
[2021-01-03] MEDS ORDERED: IV NORMAL SALINE 1,000ML 1,000 ML IV ONE (17:30)
[2021-01-03] MEDS ORDERED: MORPHINE SULFATE 4 MG/ML DISP.SYRIN. IV ONE (17:30)
[2021-01-03] MEDS ORDERED: ONDANSETRON PF 4 MG/2 ML VIAL. IVP ONE ×2 (17:30→19:30)
--- NOTE | 2021-01-03 17:46 | PHYS DOC ---
Past History Past Medical History: UTI Additional Past Medical Histor: Anxiety. PTSD Past Surgical History: No Surgical History Additional Past Surgical Histo: Fallopian tubes removed Smoking: Cigarettes Alcohol Use: Occasionally Drug Use: None General Adult EDM: Chief Complaint: ABDOMINAL PAIN HPI: HPI: Patient is a 35-year-old female presents with abdominal pain, nausea/vomiting/diarrhea for 3 days. Patient describes pain as sharp, intermittent, lower abdominal pain that radiates to her left flank. Patient states that nothing makes the pain better or worse. denies taking anything prior to arrival of for pain patient denies fever. Denies health history. Review of Systems: Review of Systems: Constitutional: Denies fever or chills Eyes: Denies change in visual acuity HENT: Denies nasal congestion or sore throat Respiratory: Denies cough or shortness of breath Cardiovascular: Denies chest pain or edema GI: Reports lower abdominal pain, nausea, vomiting, diarrhea. : Denies dysuria Musculoskeletal: Left flank pain Integument: Denies rash Neurologic: Denies headache, focal weakness or sensory changes Endocrine: Denies polyuria or polydipsia Lymphatic: Denies swollen glands Psychiatric: Denies depression or anxiety Current Medications: Current Meds: Current Medications Medications (Trade) Dose Ordered Sig/Chato Start Time Stop Time Status Last Admin Dose Admin Morphine Sulfate (Morphine 4mg Syringe) 4 mg 1X ONCE 01/03/21 17:30 01/03/21 17:32 DC Ondansetron HCl (Zofran) 4 mg 1X ONCE 01/03/21 17:30 01/03/21 17:32 DC Sodium Chloride 1,000 ml @ 1,000 mls/hr 1X ONCE 01/03/21 17:30 01/03/21 18:29 Allergies: Allergies: Allergies Coded Allergies Type Severity Reaction Last Updated Verified No Known Drug Allergies 01/03/21 No Physical Exam: PE: Constitutional: Well developed, well nourished, no acute distress, non-toxic appearance. [] HENT: Normocephalic, atraumatic, bilateral external ears normal, oropharynx moist, no oral exudates, nose normal. [] Eyes: PERRLA, EOMI, conjunctiva normal, no discharge. [] Neck: Normal range of motion, no tenderness, supple, no stridor. [] Cardiovascular:Heart rate regular rhythm, no murmur [] Lungs & Thorax: Bilateral breath sounds clear to auscultation [] Abdomen: Bowel sounds normal, soft, no tenderness, no masses, no pulsatile mas ses. [] Skin: Warm, dry, no erythema, no rash. [] Back: No tenderness, no CVA tenderness. [] Extremities: No tenderness, no cyanosis, no clubbing, ROM intact, no edema. [] Neurologic: Alert and oriented X 3, normal motor function, normal sensory function, no focal deficits noted. [] Psychologic: Affect normal, judgement normal, mood normal. [] Current Patient Data: Vital Signs: Vital Signs Date Time Temp Pulse Resp B/P (MAP) Pulse Ox O2 Delivery O2 Flow Rate FiO2 01/03/21 16:50 97.6 68 16 110/61 (77) 97 EKG: EKG: [] Radiology/Procedures: Radiology/Procedures: [] Heart Score: C/O Chest Pain: No Risk Factors: Risk Factors: DM, Current or recent (<one month) smoker, HTN, HLP, family history of CAD, obesity. Risk Scores: Score 0 - 3: 2.5% MACE over next 6 weeks - Discharge Home Score 4 - 6: 20.3% MACE over next 6 weeks - Admit for Clinical Observation Score 7 - 10: 72.7% MACE over next 6 weeks - Early Invasive Strategies Course & Med Decision Making: Course & Med Decision Making Pertinent Labs and Imaging studies reviewed. (See chart for details) [] 35-year-old female presents with abdominal pain, nausea/vomiting/diarrhea. Patient reports lower abdominal pain that radiates to her left flank. Patient given 4 mg of morphine, 4 mg of Zofran and normal saline bolus. CT of abdomen pelvis negative. All labs are unremarkable. Urine is negative for infection. Discussed lab and CT results with patient. Patient reports her pain and nausea have improved. Sending patient home with a prescription for Zofran to treat symptoms. Advised patient she can take Tylenol and ibuprofen at home for discomfort. Patient is appreciative and okay with discharge plan . patient is hemodynamically stable and able to ambulate on her own out of the emergency room. Dragon Disclaimer: Dragon Disclaimer: This electronic medical record was generated, in whole or in part, using a voice recognition dictation system. Departure Departure: Impression: Primary Impression: Abdominal pain Qualified Codes: R10.30 - Lower abdominal pain, unspecified Additional Impressions: Nausea and vomiting Qualified Codes: R11.2 - Nausea with vomiting, unspecified Diarrhea Qualified Codes: R19.7 - Diarrhea, unspecified Disposition: 01 HOME / SELF CARE / HOMELESS Condition: STABLE Referrals: PCP,AVA (PCP) Patient Instructions: Abdominal Pain Additional Instructions: You are seen in the emergency room for abdominal pain, nausea and vomiting diarrhea. You were given pain medication and nausea medication and your symptoms improved. I am going to send you home with Zofran for nausea. Take ibuprofen and Tylenol at home for discomfort. If your pain continues please follow-up with your PCP you can return to the emergency room with worsening symptoms or concerns EMERGENCY DEPARTMENT GENERAL DISCHARGE INSTRUCTIONS Thank you for coming to [facility] (ED) today and trusting us with you care. We trust that you had a positivie experience in our Emergency Department. If you wish to speak to the department management, you may call the director at . YOUR FOLLOW UP INSTRUCTIONS ARE FOLLOWS: 1. Do you have a private Doctor? If you do not have a private doctor, please ask for a resource list of physicians or clinics that may be able to assist you with follow up care. 2. The Emergency Physician has interpreted your x-rays. The X-Ray specialist will also review them. If there is a change in the findings, you will be notified in 48 hours when at all possible. 3. A lab test or culture has been done, your results will be reviewed and you will be notified if you need a change in treatment. ADDITIONAL INSTRUCTIONS AND INFORMATION: 1. Your care today has been supervised by a physician who is specially trained in emergency care. Many problems require more than one evaluation for a complete diagnosis and treatment. We recommend that you schedule your follow up appointment as recommended to ensure complete treatment of you illness or injury. If you are unable to obtain follow up care and continue to have a problem, or if your condition worsens, we recommend that you return to the ED. 2. We are not able to safely determine your condition over the phone nor are we able to give sound medical advice over the phone. For these safety reasons, if you call for medical advice we will ask you to come to the ED for further evaluation. 3. If you have any questions regarding these discharge instructions please call the ED at [phone]. SAFETY INFORMATION: In the interest of safety, wellness, and injury prevention; we encourage you to wear your sealbelt, if you smoke; quite smoking, and we encourage family to use a protective helmet for bicycling and other sporting events that present an increased risk for head injury. IF YOUR SYMPTOMS WORSEN OR NEW SYMPTOMS DEVELOP, OR YOU HAVE CONCERNS ABOUT YOUR CONDITION; OR IF YOUR CONDITION WORSENS WHILE YOU ARE WAITING FOR YOUR FOLLOW UP APPOINTMENT; EITHER CONTACT YOUR PRIMARY CARE DOCTOR, THE PHYSICIAN WHOSE NAME AND NUMBER YOU WERE GIVEN, OR RETURN TO THE ED IMMEDIATELY. Scripts Ondansetron Hcl (ZOFRAN) 4 Mg Tablet 4 MG PO TID PRN PRN for NAUSEA, #9 TAB Prov: KIAH GONZALEZ APRN 01/03/21 KIAH GONZALEZ APRN Jan 03, 2021 17:45
[2021-01-03 17:50] LABS: BASO # 0.1 x10^3/uL (0.0-0.2); BASO % 1 % (0-3); EOS # 0.2 x10^3/uL (0.0-0.7); EOS % 3 % (0-3); HEMATOCRIT 42.7 % (36.0-47.0); HEMOGLOBIN 14.3 g/dL (12.0-15.5); LYMPH # 1.7 x10^3/uL (1.0-4.8); LYMPH % 25 % (24-48); MEAN CORPUSCULAR HEMOGLOBIN 33 pg (25-35); MEAN CORPUSCULAR HGB CONC 34 g/dL (31-37); MEAN CORPUSCULAR VOLUME 98 fL (79-100); MONO # 0.5 x10^3/uL (0.0-1.1); MONO % 7 % (0-9); NEUT # 4.5 x10^3uL (1.8-7.7); NEUT % 64 % (31-73); PLATELET COUNT 254 x10^3/uL (140-400); RED BLOOD COUNT 4.35 x10^6/uL (3.50-5.40); RED CELL DISTRIBUTION WIDTH 13.3 % (11.5-14.5)
[2021-01-03 17:54] LABS: BILIRUBIN,URINE NEG (NEG); CLARITY,URINE CLEAR; COLOR,URINE YELLOW; GLUCOSE,URINE NEG (NEG); NITRITE,URINE NEG (NEG); UROBILINOGEN,URINE 0.2 mg/dL (0.2 mg/dL)
[2021-01-03 17:56] LABS: ALBUMIN 3.5 g/dL (3.4-5.0); ALBUMIN/GLOBULIN RATIO 1.1 (1.0-1.7); CALCIUM 8.4 mg/dL (8.5-10.1); CREATININE 0.8 mg/dL (0.6-1.0); GFR 81.6; POTASSIUM 3.8 mmol/L (3.5-5.1); TOTAL BILIRUBIN 0.3 mg/dL (0.2-1.0); TOTAL PROTEIN 6.7 g/dL (6.4-8.2)
[2021-01-03 17:58] LABS: BACTERIA,URINE FEW /HPF (0-FEW); RBC,URINE OCC /HPF (0-2); SQUAMOUS EPITHELIAL CELL,UR FEW /LPF
--- NOTE | 2021-01-03 18:05 | RAD ---
Exam: CT abdomen and pelvis without contrast INDICATION: Lower abdominal pain TECHNIQUE: Sequential axial images through the abdomen and pelvis obtained without IV contrast. Sagit matthew and coronal reformatted images were reconstructed from the axial data and reviewed. Exposure: One or more of the following in the visualized dose reduction techniques were utilized for this examination: 1. Automated exposure control 2. Adjustment of the MA and/or KV according to patient size 3. Use of iterative of reconstructive technique Comparisons: 02/01/2017 FINDINGS: Heart size is normal. No pericardial effusion. Visualized lung bases are clear. No pleural effusion. Evaluation of solid organs limited secondary to noncontrast technique. Liver, spleen, pancreas, gallbladder and adrenals are unremarkable. No perinephric inflammation or hydronephrosis. No renal or ureteral calculi are identified. Bladder is partially distended and not well evaluated. Uterus is not enlarged. No abnormal adnexal ma ss. Large and small bowel are unremarkable. Appendix is normal. No free intra-abdominal air or fluid. No obstruction. Abdominal aorta has a normal course and caliber. No enlarged intra-abdominal lymph nodes are identified. No suspicious osseous lesions or acute fractures. IMPRESSION: No acute process identified within the abdomen or pelvis. Electronically signed by: Jagruti Raygoza MD (01/03/2021 6:02 PM) [facility]
[2021-01-03 18:10] LABS: U PREG PATIENT NEGATIVE (NEG)
[2021-01-03] MEDS ORDERED: ONDA4TAB7 PO (18:59)
[2021-01-03 19:40] VITALS: BP 107/50
--- NOTE | 2021-01-03 20:38 | EKG ---
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
== END 2021-01-03 19:45 | disposition home or self-care (01) ==
LOC: ER 16:27
DX: R10.30 Lower abdominal pain, unspecified (principal); R11.2 Nausea with vomiting, unspecified; R19.7 Diarrhea, unspecified; F17.210 Nicotine dependence, cigarettes, uncomplicated; Z87.440 Personal history of urinary (tract) infections
CPT/HCPCS: 36415; 74176; 80053; 81001; 81025; 83690; 85025; 93005; 96361; 96374; 96375; 96376; 99285; J2270; J2405; J7030

== ENCOUNTER 2021-01-27 23:27 | Emergency (ER) | payer MEDICAID ==
[~2021-01-27] VITALS: Ht 172.7 cm; Wt 80.0 kg
[~2021-01-27 23:27] MED LIST changes: +ONDA4TAB7 PO
[2021-01-27 23:54] VITALS: BP 111/62
--- NOTE | 2021-01-28 00:07 | RAD ---
XR CHEST 1V INDICATION: Reason: cough / Spl. Instructions: / History: . COMPARISON STUDY: 11/02/2019. FINDINGS: Lungs: Normal lung volume. No pulmonary mass or consolidation. The tracheobronchial tree and hilar st ructures are normal. Pleura: No pleural effusion or pneumothorax. Heart and Mediastinum: The cardiomediastinal silhouette is normal. The great vessels of the thorax ar e normal. IMPRESSION: No acute cardiopulmonary process. Electronically signed by: Armaan Richardson MD (01/28/2021 12:04 AM) [facility]
--- NOTE | 2021-01-28 00:11 | PHYS DOC ---
Past History Past Medical History: UTI Additional Past Medical Histor: PTSD Past Surgical History: Other Additional Past Surgical Histo: Fallopian tubes removed Smoking: Cigarettes Alcohol Use: Occasionally Drug Use: None Adult General Chief Complaint Chief Complaint: COUGH HPI HPI Patient is a 36-year-old female who presents with a couple days of productive cough, sore throat, and runny nose. Denies any recent traumas, travels, fevers, known ill contacts, chest pain, shortness of breath, abdominal pain, nausea, vomiting, diarrhea. Review of Systems Review of Systems Review of systems otherwise unremarkable except noted in HPI Allergies Allergies Allergies Coded Allergies Type Severity Reaction Last Updated Verified No Known Drug Allergies 01/03/21 No Physical Exam Physical Exam Constitutional: Well developed, well nourished, no acute distress, non-toxic appearance. [] HENT: Normocephalic, atraumatic, bilateral external ears normal, oropharynx moist, no oral exudates, nose normal. [] Eyes: conjunctiva normal, no discharge. [] Neck: Normal range of motion, no tenderness, supple, no stridor. [] Cardiovascular:Heart rate regular rhythm, no murmur [] Lungs & Thorax: Bilateral breath sounds clear to auscultation [] Abdomen: soft, no tenderness, no masses, no pulsatile masses. [] Skin: Warm, dry, no erythema, no rash. [] Extremities: No tenderness, ROM intact, no edema. [] Neurologic: Alert and oriented X 3, no focal deficits noted. [] Psychologic: Affect normal, judgement normal, mood normal. [] Current Patient Data Vital Signs Vital Signs Date Time Temp Pulse Resp B/P (MAP) Pulse Ox O2 Delivery O2 Flow Rate FiO2 01/27/21 23:54 98.8 78 18 111/62 98 Room Air EKG EKG [] Radiology/Procedures Radiology/Procedures [] Heart Score C/O Chest Pain: No Risk Factors: Risk Factors: DM, Current or recent (<one month) smoker, HTN, HLP, family history of CAD, obesity. Risk Scores: Risk Factors: DM, Current or recent (<one month) smoker, HTN, HLP, family history of CAD, obesity. Course & Med Decision Making Course & Med Decision Making Patient is a 36-year-old female who presents with cough, sore throat and runny nose Vital signs not concerning. Physical exam noted above. Chest x-ray not concerning. Given cough medicine in the emergency department. Advised on symptom management at home. Advised to call primary care physician first thing Saturday morning to update on ED visit and set up a follow-up. Gave strict return precautions to the ED. Patient grateful, verbalized understanding and agreed with plan of discharge. [] Dragon Disclaimer Dragon Disclaimer This electronic medical record was generated, in whole or in part, using a voice recognition dictation system. Departure Departure: Impression: Primary Impression: Viral syndrome Disposition: HOME / SELF CARE / HOMELESS Condition: IMPROVED Referrals: JUDIE CABRERA MD (PCP) Patient Instructions: Viral Syndrome Additional Instructions: You have been tested for COVID-19. It is an infection caused by a new type of coronavirus. COVID-19 will cause cold-like or mild flu symptoms in most. It can cause more severe symptoms like problems breathing in some. There is no treatment for COVID-19. The body will clear the infection over time. Self-care will help to ease discomfort. Steps to Take: Self-Care Rest as needed. Healthy habits may help you feel better. Steps include: Choose healthy foods including fruits and vegetables. Drink water throughout the day. Get plenty of sleep each night. If you smoke, try to quit. It may ease breathing. Avoid alcohol. Keep Others Healthy The virus can spread to others. Droplets are released every time you sneeze or cough. The droplets can get into the mouth, nose, or eyes of people near you and lead to infection. To lower the chances of spreading COVID-19 to others: Stay at home until your doctor has said it is safe to leave. If you tested positive this will mean staying isolated until both of the following are true: At least 7 days have passed since the start of illness. You are free of fever for at least 72 hours without the use of medicine. During this time: - Avoid public areas, events, or transportation. Do not return to work or school until your doctor has said it is safe to do so. - Call ahead if you need to go to a medical center. Let them know you may have COVID-19. It will help them guide you where to go. They may also ask you to wear a facemask when you come to the office. - If you call for emergency medical services, let them know you may have COVID- 19. While at home: - Try to avoid close contact with others. Stay about 6 feet away. - If possible, spend most of your time in a separate room from others. - Use a face mask if you will be in close contact with others such as sharing a room or vehicle. - Have someone wipe down common surfaces in the home. Use household senior patient account representative every day on areas like doorknobs, counters, or sinks. - Cough or sneeze into a tissue. Throw the tissue away right after use. If a tissue is not available, cough or sneeze into your elbow. - Wash your hands often. Wash them after sneezing or coughing. Use soap and water and wash for at least 20 seconds. Alcohol based hand vat cleaner can be used if soap and water is not available. - Do not prepare food for others. Avoid sharing personal items like forks, spoo ns, or toothbrushes. - Avoid close contact with pets while you are sick. There is no evidence of the virus passing to pets. This is a safety step until more is known about this virus. Isolation can be frustrating. Social interaction can help. Keep in touch with friends and family through phone and tech options. You can still interact with others in your home, just keep a safe distance of about 6 feet. Follow-up: Your doctors office will check in with you to see if there are any changes in your health. You may be asked to keep track of symptoms to share with them. They will also let you know when you are clear to be in public again. Problems to Look Out For: Contact your doctor if your recovery is not going as you expect. Get emergency care if you have problems such as: - Trouble breathing - Nonstop chest pain or pressure - Changes in awareness, confusion, or problems waking - Lips or face have bluish color - Worsening of symptoms If you think you have an emergency, call for emergency medical services right away. As taken from [facility] [place] UVALDO Wilcox MD Jan 28, 2021 00:11
[2021-01-28] MEDS ORDERED: guaiFENesin/CODEINE 100mg/10mg 5 ML LIQUID PO PRN (00:15)
== END 2021-01-28 00:33 | disposition home or self-care (01) ==
LOC: ER 23:27
DX: B34.9 Viral infection, unspecified (principal); F17.210 Nicotine dependence, cigarettes, uncomplicated; Z20.822 Contact with and (suspected) exposure to COVID-19
CPT/HCPCS: 71045; 99284; C9803; U0003

== ENCOUNTER 2021-02-13 11:01 | Emergency (ER) | payer MEDICAID ==
[~2021-02-13] VITALS: Ht 172.7 cm; Wt 80.0 kg
[2021-02-13 11:01] VITALS: BP 92/72
--- NOTE | 2021-02-13 11:25 | PHYS DOC ---
Past History Past Medical History: UTI Additional Past Medical Histor: PTSD (NADIYA APODACA APRN) Past Surgical History: Other Additional Past Surgical Histo: Fallopian tubes removed (NADIYA APODACA APRN) Smoking: Cigarettes Alcohol Use: Occasionally Drug Use: None (NADIYA APODACA APRN) General Adult EDM: Chief Complaint: EARACHE/EAR PAIN HPI: HPI: Patient is a 36-year-old female being seen in the ER for decreased hearing and ear pain in the left ear. Patient denies any injury. Patient reports that she thought she had some excessive earwax and says she used Q-tips and Debrox last night but then woke up this morning with no hearing. (NADIYA APODACA APRN) Review of Systems: Review of Systems: 14 body systems of the review of systems have been reviewed. See HPI for pertinent positive and negative responses, otherwise all other systems are negative, nonpertinent or noncontributory (NADIYA APODACA APRN) Allergies: Allergies: Allergies Coded Allergies Type Severity Reaction Last Updated Verified No Known Drug Allergies 01/03/21 No (NADIYA APODACA APRN) Physical Exam: PE: Constitutional: Well developed, well nourished, no acute distress, non-toxic appearance. [] HENT: Normocephalic, atraumatic, bilateral external ears normal, excessive cerumen noted in left ear, negative otorrhea, oropharynx moist, no oral exudates, nose normal. [] Eyes: PERRL, conjunctiva normal, no discharge. [] Neck: Normal range of motion, no stridor Cardiovascular: Normal peripheral perfusion Lungs & Thorax: Normal work of breathing, no tachypnea Skin: Warm, dry, no erythema, no rash. [] Back: Normal range of motion Extremities: No tenderness, no cyanosis, no clubbing, ROM intact, no edema. [] Neurologic: Alert and oriented X 3, normal motor function, normal sensory function, no focal deficits noted. [] Psychologic: Affect normal, judgement normal, mood normal. [] (NADIYA APODACA APRN) EKG: EKG: [] (NADIYA APODACA APRN) Radiology/Procedures: Radiology/Procedures: [] (NADIYA APODACA APRN) Heart Score: C/O Chest Pain: No Risk Factors: Risk Factors: DM, Current or recent (<one month) smoker, HTN, HLP, family history of CAD, obesity. Risk Scores: Score 0 - 3: 2.5% MACE over next 6 weeks - Discharge Home Score 4 - 6: 20.3% MACE over next 6 weeks - Admit for Clinical Observation Score 7 - 10: 72.7% MACE over next 6 weeks - Early Invasive Strategies (NADIYA APODACA APRN) Course & Med Decision Making: Course & Med Decision Making Pertinent Labs and Imaging studies reviewed. (See chart for details) Patient is a 36-year-old female being seen in the ER for decreased hearing and pain in her left ear. Patient was noted to have excessive cerumen in her left ear. ER staff attempted to remove cerumen with ear wash, patient could not tolerate the procedure. Patient given pain medication in the ER. Unable to provide Debrox in the ER as it is out of stock. Due to patient not being able to tolerate ear wash, patient advised to use Debrox at home to soften the earwax and use it in stages and follow-up with her primary care provider to have the earwax removed. I discussed with patient all findings as well as the need to follow-up with PCP for further evaluation and treatment or return to the ER if any new or worsening symptoms. Strict return precautions were also discussed at length. Patient voiced understanding and agreement with the plan. Patient is hemodynamically stable at the time of disposition. (NADIYA APODACA APRN) Dragon Disclaimer: Dragon Disclaimer: This electronic medical record was generated, in whole or in part, using a voice recognition dictation system. (NADIYA APODACA APRN) Departure Departure: Impression: Primary Impression: Cerumen impaction Qualified Codes: H61.22 - Impacted cerumen, left ear Disposition: HOME / SELF CARE / HOMELESS Condition: GOOD Referrals: JUDIE CABRERA MD (PCP) Patient Instructions: Cerumen Impaction Additional Instructions: You were seen in the ER today for decreased hearing and pain in your left ear. It was noted upon physical exam that you had excessive earwax in the ear. We attempted to use an ear wash to remove the earwax but you could not tolerate procedure. You were given pain medication in the ER. You will need to use the Debrox at home as directed to soften your earwax and follow-up with your primary care provider to have your earwax removed. If your primary care provider does not do cerumen removal, you may need to follow-up with an ENT. Please follow- up with your primary care provider as needed. If your symptoms worsen or persist please or you develop new concerns please return to the ER. EMERGENCY DEPARTMENT GENERAL DISCHARGE INSTRUCTIONS Thank you for coming to [facility] (ED) today and trusting us with you care. We trust that you had a positivie experience in our Emergency Department. If you wish to speak to the department management, you may call the director at [phone]. YOUR FOLLOW UP INSTRUCTIONS ARE FOLLOWS: 1. Do you have a private Doctor? If you do not have a private doctor, please ask for a resource list of physicians or clinics that may be able to assist you with follow up care. 2. The Emergency Physician has interpreted your x-rays. The X-Ray specialist will also review them. If there is a change in the findings, you will be notified in 48 h ours when at all possible. 3. A lab test or culture has been done, your results will be reviewed and you will be notified if you need a change in treatment. ADDITIONAL INSTRUCTIONS AND INFORMATION: 1. Your care today has been supervised by a physician who is specially trained in emergency care. Many problems require more than one evaluation for a complete diagnosis and treatment. We recommend that you schedule your follow up appointment as recommended to ensure complete treatment of you illness or injury. If you are unable to obtain follow up care and continue to have a problem, or if your condition worsens, we recommend that you return to the ED. 2. We are not able to safely determine your condition over the phone nor are we able to give sound medical advice over the phone. For these safety reasons, if you call for medical advice we will ask you to come to the ED for further evaluation. 3. If you have any questions regarding these discharge instructions please call the ED at [phone]. SAFETY INFORMATION: In the interest of safety, wellness, and injury prevention; we encourage you to wear your sealbelt, if you smoke; quite smoking, and we encourage family to use a protective helmet for bicycling and other sporting events that present an increased risk for head injury. IF YOUR SYMPTOMS WORSEN OR NEW SYMPTOMS DEVELOP, OR YOU HAVE CONCERNS ABOUT YOUR CONDITION; OR IF YOUR CONDITION WORSENS WHILE YOU ARE WAITING FOR YOUR FOLLOW UP APPOINTMENT; EITHER CONTACT YOUR PRIMARY CARE DOCTOR, THE PHYSICIAN WHOSE NAME AND NUMBER YOU WERE GIVEN, OR RETURN TO THE ED IMMEDIATELY. Attending Signature Attending Signature I have reviewed the PA/SAND TESTER's note and plan of care. I was available for consultation as needed during the patient's visit in the emergency department. I agree with the clinical impression, plan, and disposition. (KATLYN NUNES DO) NADIYA APODACA APRN Feb 13, 2021 11:25 KATLYN NUNES DO Feb 13, 2021 20:41
[2021-02-13] MEDS ORDERED: IBUPROFEN 600 MG TABLET. PO ONE (13:30)
[2021-02-13] MEDS ORDERED: CARBAMIDE PEROXIDE 6.5% OTIC SOLUTION 15ML BOTTLE. AS ONE (13:30)
== END 2021-02-13 13:50 | disposition home or self-care (01) ==
LOC: ER 11:01
DX: H61.22 Impacted cerumen, left ear (principal); F17.210 Nicotine dependence, cigarettes, uncomplicated; Z87.440 Personal history of urinary (tract) infections
CPT/HCPCS: 69209; 99282

== ENCOUNTER → 2021-08-21 | Outpatient (CLI) | payer MEDICAID ==
[~2021-08-21] MED LIST changes: -CYCL-331 PO; +CYCL10TA19 PO
--- NOTE | 2021-08-21 16:41 | RAD ---
EXAM: Chest, 2 views. HISTORY: Shortness of breath. COMPARISON: 01/27/2021 FINDINGS: 2 views of the chest are obtained. There is no infiltrate, pleural effusion or pneumothorax . The heart is normal in size. IMPRESSION: No acute pulmonary finding. Electronically signed by: Nicolle Sanchez MD (08/21/2021 4:38 PM) [id number]
== END ==
LOC: RAD 16:15
PROVIDERS: ATTEND Family Medicine
DX: R06.02 Shortness of breath (principal)
CPT/HCPCS: 71046